=== PATIENT | female | born 1950 | race Caucasian/White ===

== ENCOUNTER → 2020-06-13 13:09 | Outpatient (BNVA) | payer MEDICARE, OTHER, SELFPAY | PROVIDERS: Family Provider Family Medicine; PCP Family Medicine; Visit Provider Family Medicine | DX: U07.1 COVID-19 (principal) | CPT/HCPCS: 87635 ==

== ENCOUNTER 2020-10-28 20:06 | Inpatient (IN) | payer MEDICARE, OTHER, SELFPAY ==
[2020-10-28] VITALS (7 sets, daily range): BP systolic 119–132; BP diastolic 82–88; PULSE 79–100; RESP 16–18; TEMP 36.4; O2SAT 92–98; BMI 29.3
--- NOTE | 2020-10-28 20:07 | CTR_ITS ---
PROCEDURE INFORMATION: Exam: CT Head Without Contrast Exam date and time: 10/28/2020 8:07 PM Age: 70 years old Clinical indication: Altered mental status/memory loss; Confusion or disorientation; Patient HX: Sudden onset AMS TECHNIQUE: Imaging protocol: Computed tomography of the head without contrast. Radiation optimization: All CT scans at this facility use at least one of these dose optimization techniques: automated exposure control; mA and/or kV adjustment per patient size (includes targeted exams where dose is matched to clinical indication); or iterative reconstruction. COMPARISON: No relevant prior studies available. RADIATION DOSE METRICS: Total DLP (mGy-cm): 666.13 FINDINGS: Brain: Mild cerebral atrophy and ischemic leukoencephalopathy. Cerebral ventricles: No ventriculomegaly. Bones/joints: Unremarkable. No acute fracture. Paranasal sinuses: Visualized sinuses are unremarkable. No fluid levels. Mastoid air cells: Visualized mastoid air cells are well aerated. Soft tissues: Unremarkable. CT/CT head wo con* [id number] IMPRESSION: No acute intracranial findings. Radiation Dose CTDIVOL = (mGy): DLP = 666.13 (mGy-cm)
--- NOTE | 2020-10-28 20:28 | ECG_ITS ---
[facility] Test Date: 2020-10-28 Pat Name: Nasrin Welsh Department: Room: Gender: Female [employer] Supervisor: : 1950 Requested By: Nile Lucero I Order Number: [id number] Reading MD: JORY STEARNS Measurements Intervals [place] Rate: 84 P: 51 OH: 146 QRS: -26 QRSD: 77 T: 220 QT: 372 QTc: 442 Interpretive Statements SINUS RHYTHM WITH FREQUENT SUPRAVENTRICULAR PREMATURE COMPLEXES BORDERLINE LEFT AXIS DEVIATION [QRS AXIS < -20] LOW QRS VOLTAGE IN PRECORDIAL LEADS [QRS DEFLECTION < 1.0 mV IN CHEST LEADS] POSSIBLE RIGHT VENTRICULAR CONDUCTION DELAY [RSR (QR) IN V1/V2] NONSPECIFIC ST & T-WAVE ABNORMALITY No previous ECG available for comparison Electronically Signed On 10-29-2020 19:31:25 INTEGRITY MANAGER by JORY STEARNS [id number] f
--- NOTE | 2020-10-28 20:29 | XRR_ITS ---
PROCEDURE INFORMATION: Exam: XR Chest, 1 View Exam date and time: 10/28/2020 9:26 PM Age: 70 years old Clinical indication: Other: altered mental status TECHNIQUE: Imaging protocol: XR of the chest Views: Frontal portable upright view of the chest. COMPARISON: No relevant prior studies available. FINDINGS: Lungs: Medial and lateral left basilar pulmonary subsegmental atelectasis. The lungs are otherwise clear bilaterally. The pulmonary vasculature is normal. Pleural spaces: Unremarkable. No pleural effusion. No pneumothorax. Heart/Mediastinum: The heart is normal in size and contour. Vasculature: Mild tortuosity of the lower descending thoracic aorta. Mild aortic arch atherosclerotic calcification without ectasia. Bones/joints: Right lateral vertebral body marginal osteophytes are noted at multiple thoracic spinal levels. XR/XR chest 1V portable [id number] IMPRESSION: Medial and lateral left basilar pulmonary subsegmental atelectasis.
[2020-10-28 20:55] LABS: Basophils # 0.1 10^3/uL (0.0-0.1); Eosinophils # 0.1 10^3/uL (0.0-0.8); Hematocrit 38.7 % (37.0-47.0); Hemoglobin 12.3 g/dL (11.5-15.3); Lymphocytes # 1.5 10^3/uL (0.8-4.8); Lymphocytes % 20.2 %; Mean Corpuscular HGB Conc 31.8 g/dL (30.0-36.0); Mean Corpuscular Hemoglobin 28.9 pg (28.0-34.0); Mean Corpuscular Volume 91.1 fL (81-99); Mean Platelet Volume 9.7 fL (7.4-10.4); Monocytes # 0.5 10^3/uL (0.2-0.9); Monocytes % 6.3 %; Neutrophils # 5.25 10^3/uL (1.8-7.7); Neutrophils % 71.2 %; Nucleated Red Blood Cells % 0 %; Platelet Count 336 10^3/cmm (130-400); Red Blood Count 4.25 10^6/uL (4.1-5.3); Red Cell Distribution Width 13.1 % (12.1-15.1); White Blood Count 7.4 10^3/uL (4.0-10.0)
[2020-10-28 21:12] LABS: Lactate (Lactic Acid level) 1.3 mmol/L (0.5-2.2)
[2020-10-28 21:13] LABS: Alanine Aminotransferase 16 U/L (0-33); Albumin Level 3.6 g/dL (3.5-5.2); Alcohol Level < 10 mg/dL (0-10); Alkaline Phosphatase 58 IU/L (35-105); Anion Gap 15.7 (5-19); Aspartate Amino Transferase 15 U/L (0-32); Blood Urea Nitrogen 14 mg/dL (8-23); C Reactive Protein 13.1 mg/L (0.0-4.9); Carbon Dioxide 24 mmol/L (22-29); Chloride 103 mmol/L (98-107); Globulin 2.7 g/dL (1.3-4.6); Glucose 118 mg/dL (65-115); Osmolality Calculated 290 mOsm/kg (285-295); Potassium 3.7 mmol/L (3.5-5.1); Sodium 139 mmol/L (136-145); Total Bilirubin 0.3 mg/dL (0.15-1.2); Total Protein 6.3 g/dL (6.6-8.7); Troponin(5th) Baseline 26 ng/L (0-10)
[2020-10-28 21:19] LABS: Amphetamines Screen Urine Negative (Negative); Barbiturates Screen Urine Negative (Negative); Benzodiazepines Screen Urine Negative (Negative); Cocaine Screen Urine Negative (Negative); Opiate Screen Urine Negative (Negative); PCP Screen Urine Negative (Negative); THC Screen Urine Negative (Negative)
[2020-10-28 21:49] LABS: Bilirubin Urine Neg (Negative); Blood Urine Neg (Negative); Glucose Urine UA Norm (Normal); Ketones Urine Negative (Negative); Leukocyte Esterase Urine 2+ (Negative); Nitrate Urine Negative (Negative); Protein Urine Neg (Negative); Specific Gravity, Urine 1.005 (1.005-1.030); Urine Appearance Clear (CLEAR); Urine Color Yellow (Yellow); Urobilinogen Urine Norm (Negative); pH Urine 7 (5-7)
[2020-10-28 21:50] LABS: Add Urine Microscopic? YES
[2020-10-28 21:51] LABS: Bacteria Urine 1+ /hpf; Mucus Urine TRACE /hpf; RBC Urine 0-4 /hpf (0-2); Squamous Epithelial Cell Urine 0-4 /hpf (0-5); Transitional Epi Cells Urine 0-4 /hpf; WBC Urine 40-55 /hpf (0-5)
[2020-10-28 21:52] LABS: Add Urine Culture? Yes
[2020-10-28] MEDS: cefTRIAXone 1,000 MG in sodium chloride 0.9% (plus) 50 ML 100 MG IV (22:16)
--- NOTE | 2020-10-28 22:28 | ECG_ITS ---
[facility] Test Date: 2020-10-28 Pat Name: Nasrin Welsh Department: Room: 278 Gender: Female Patent Litigation Associate: : 1950 Requested By: Nile Lucero I Order Number: [id number] Reading MD: JORY STEARNS Measurements Intervals [place] Rate: 76 P: 54 NE: 157 QRS: -23 QRSD: 81 T: 228 QT: 391 QTc: 442 Interpretive Statements SINUS RHYTHM BORDERLINE LEFT AXIS DEVIATION [QRS AXIS < -20] POSSIBLE RIGHT VENTRICULAR CONDUCTION DELAY [RSR (QR) IN V1/V2] NONSPECIFIC T-WAVE ABNORMALITY Compared to ECG 10/28/2020 20:37:04 No significant changes Electronically Signed On 10-29-2020 19:38:50 CORRECTIONAL SUPPLY SUPERVISOR by JORY STEARNS [email or web address] [id number] f
--- NOTE | 2020-10-28 22:48 | ED_ITS ---
HPI - Altered Mental Status General: Chief Complaint: Altered Mental Status Stated Complaint: AMS Time Seen by Provider: 10/28/20 20:07 Source: patient and EMS Mode of arrival: EMS Limitations: altered mental status History of Present Illness: HPI narrative: The albert is a 70 year old female with a history of HTN, hypothyroidism who presents to the ED with AMS. She is unable to give a coherent history. Last known well is many hours ago. She says she has been feeling unwell for about one week and today she went to bed to take a nap in the afternoon and when she woke up she was very confused. She had a Bible study class this evening and when her friends came they noticed that she was confused and not making sense. They then called for an ambulance. The ambulance crew said that the patient was in a full-blown panic attack when they got there. The patient is unable to give me a timeline of her illness and she jumped from weeks ago to hours ago and her timeline is nonlinear. She is confused and thinks she is in [place]. 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 Physical Exam Const: COMMON NORMALS: no acute distress, average body habitus, patient oriented x3, no limitations, healthy appearing, alert and well nourished HENMT: COMMON NORMALS: normocephalic, atraumatic and moist oral mucous membranes HEAD & SCALP: normocephalic and atraumatic Neck/C-Spine: COMMON NORMALS: no meningeal signs and no JVD Resp: COMMON NORMALS: normal respiratory effort, No retractions, No use of accessory muscles, clear to auscultation bilaterally and percussion normal AUSCULTATION: clear to auscultation bilaterally PERCUSSION: percussion normal Cardio: COMMON NORMALS: no JVD, regular rate, regular rhythm, S1 normal heart sound present, S2 normal heart sound present, No gallops present (Cardio), No clicks present (Cardio), No murmurs present (Cardio), No rub (Cardio) and Peripheral pulses 2+ throughout RATE: regular rate RHYTHM: regular rhythm HEART SOUNDS: S1 normal heart sound present and S2 normal heart sound present PERIPHERAL PULSES: Peripheral pulses 2+ throughout GI: COMMON NORMALS: Normal to inspection, nondistended, normoactive bowel sounds present, Soft to palpation, non-tender, No hepatosplenomegaly present, no masses and no bruits PALPATION: Yes Soft to palpation and Yes No hepatosplenomegaly present Extremity: COMMON NORMALS: normal to inspection, full ROM, capillary refill normal, no calf tenderness and no pedal edema Neuro: COMMON NORMALS: patient oriented x3 SENSORIUM/ORIENTATION: Yes alert MENINGEAL SIGNS: Yes no meningeal signs Skin: COMMON NORMALS: no rashes or lesions noted, no wounds, turgor normal, no jaundice, no petechiae and no mottling GENERAL SKIN EXAM: no rashes or lesions noted and turgor normal Course Consultations: Consultation #1: Discussed the patient with Dr. Lopez, hospitalist and he kindly accepted the patient to his service. Time: 23:44 Vital Signs: Vital signs: Vital Signs Temperature 97.6 F 10/28/20 20:16 Pulse Rate 79 10/28/20 22:15 Respiratory Rate 16 10/28/20 22:15 Blood Pressure 123/84 10/28/20 23:24 Pulse Oximetry 98 10/28/20 23:24 MDM - Altered Mental Status MDM Narrative: Medical decision making narrative: 71-year-old female patient who presents to the emergency department with altered mental status. Evaluation in the emergency department shows she has a negative head CT, UTI. S he is very confused and is unable to give a coherent history. Examination is nonrevealing. She is admitted for further evaluation and management. Medical Records: Attestation: I reviewed the patient's medical records. Lab Data: Attestation: I reviewed the patient's lab results. Labs: Lab Results 10/28/20 10/28/20 10/28/20 Range/Units 20:45 20:45 20:45 WBC 7.4 (4.0-10.0) 10^3/ uL RBC 4.25 (4.1-5.3) 10^6/u L Hgb 12.3 (11.5-15.3) g/dL Hct 38.7 (37.0-47.0) % MCV 91.1 (81-99) fL MCH 28.9 (28.0-34.0) pg MCHC 31.8 (30.0-36.0) g/dL RDW 13.1 (12.1-15.1) % Plt Count 336 (130-400) 10^3/c mm MPV 9.7 (7.4-10.4) fL Neut % (Auto) 71.2 % Lymph % (Auto) 20.2 % [place] % (Auto) 6.3 % Eos % (Auto) 1.0 % Baso % (Auto) 1.0 % Neut # (Auto) 5.25 (1.8-7.7) 10^3/u L Lymph # (Auto) 1.5 (0.8-4.8) 10^3/u L [place] # (Auto) 0.5 (0.2-0.9) 10^3/u L Eos # (Auto) 0.1 (0.0-0.8) 10^3/u L Baso # (Auto) 0.1 (0.0-0.1) 10^3/u L Nucleated RBC % (a uto) 0 % Nucleated RBCs # 0.0 /100WBC Sodium 139 (136-145) mmol/L Potassium 3.7 (3.5-5.1) mmol/L Chloride 103 (98-107) mmol/L Carbon Dioxide 24 (22-29) mmol/L Anion Gap 15.7 (5-19) BUN 14 (8-23) mg/dL Creatinine 0.7 (0.5-0.9) mg/dL GFR Calculation Not Reportable Glucose 118 H (65-115) mg/dL Calculated Osmolal ity 290 (285-295) mOsm/k g Lactate 1.3 (0.5-2.2) mmol/L Calcium 9.0 (8.5-10.5) mg/dL Total Bilirubin 0.3 (0.15-1.2) mg/dL AST 15 (0-32) U/L ALT 16 (0-33) U/L Alkaline Phosphata se 58 (35-105) IU/L Troponin T Baselin e (0-10) ng/L Troponin T 120 Min [place] (0-10) ng/L Delta Troponin T (0-10) ABS# C-Reactive Protein 13.1 H (0.0-4.9) mg/L Total Protein 6.3 L (6.6-8.7) g/dL Albumin 3.6 (3.5-5.2) g/dL Globulin 2.7 (1.3-4.6) g/dL Urine Color (Yellow) Urine Appearance (CLEAR) Urine pH (5-7) Ur Specific Gravit y (1.005-1.030) Urine Protein (Negative) Urine Glucose (UA) (Normal) Urine Ketones (Negative) Urine Blood (Negative) Urine Nitrate (Negative) Urine Bilirubin (Negative) Urine Urobilinogen (Negative) mg/dL Ur Leukocyte Marti ase (Negative) Urine RBC (0-2) /hpf Urine WBC (0-5) /hpf Ur Squamous Epith Cells (0-5) /hpf Ur Transition Epit h Cell /hpf Amorphous Sediment Urine Bacteria (NONE) /hpf Urine Mucus /hpf Urine Opiates Scre en (Negative) ng/mL Ur Barbiturates Sc reen (Negative) ng/mL Ur Phencyclidine S crn (Negative) ng/mL Ur Amphetamines Sc reen (Negative) ng/mL U Benzodiazepines Scrn (Negative) ng/mL Urine Cocaine Scre en (Negative) ng/mL U Marijuana (THC) Screen (Negative) ng/mL Ethyl Alcohol < 10 (0-10) mg/dL 10/28/20 10/28/20 10/28/20 Range/Units 20:45 20:57 20:57 WBC (4.0-10.0) 10^3/ uL RBC (4.1-5.3) 10^6/u L Hgb (11.5-15.3) g/dL Hct (37.0-47.0) % MCV (81-99) fL MCH (28.0-34.0) pg MCHC (30.0-36.0) g/dL RDW (12.1-15.1) % Plt Count (130-400) 10^3/c mm MPV (7.4-10.4) fL Neut % (Auto) % Lymph % (Auto) % [place] % (Auto) % Eos % (Auto) % Baso % (Auto) % Neut # (Auto) (1.8-7.7) 10^3/u L Lymph # (Auto) (0.8-4.8) 10^3/u L [place] # (Auto) (0.2-0.9) 10^3/u L Eos # (Auto) (0.0-0.8) 10^3/u L Baso # (Auto) (0.0-0.1) 10^3/u L Nucleated RBC % (a uto) % Nucleated RBCs # /100WBC Sodium (136-145) mmol/L Potassium (3.5-5.1) mmol/L Chloride (98-107) mmol/L Carbon Dioxide (22-29) mmol/L Anion Gap (5-19) BUN (8-23) mg/dL Creatinine (0.5-0.9) mg/dL GFR Calculation Glucose (65-115) mg/dL Calculated Osmolal ity (285-295) mOsm/k g Lactate (0.5-2.2) mmol/L Calcium (8.5-10.5) mg/dL Total Bilirubin (0.15-1.2) mg/dL AST (0-32) U/L ALT (0-33) U/L Alkaline Phosphata se (35-105) IU/L Troponin T Baselin e 26 H (0-10) ng/L Troponin T 120 Min [place] (0-10) ng/L Delta Troponin T (0-10) ABS# C-Reactive Protein (0.0-4.9) mg/L Total Protein (6.6-8.7) g/dL Albumin (3.5-5.2) g/dL Globulin (1.3-4.6) g/dL Urine Color Yellow (Yellow) Urine Appearance Clear (CLEAR) Urine pH 7 (5-7) Ur Specific Gravit y 1.005 (1.005-1.030) Urine Protein Neg (Negative) Urine Glucose (UA) Norm (Normal) Urine Ketones Negative (Negative) Urine Blood Neg (Negative) Urine Nitrate Negative (Negative) Urine Bilirubin Neg (Negative) Urine Urobilinogen Norm (Negative) mg/dL Ur Leukocyte Marti ase 2+ H (Negative) Urine RBC 0-4 H (0-2) /hpf Urine WBC 40-55 H (0-5) /hpf Ur Squamous Epith Cells 0-4 H (0-5) /hpf Ur Transition Epit h Cell 0-4 /hpf Amorphous Sediment Not Reportable Urine Bacteria 1+ H (NONE) /hpf Urine Mucus Trace /hpf Urine Opiates Scre en Negative (Negative) ng/mL Ur Barbiturates Sc reen Negative (Negative) ng/mL Ur Phencyclidine S crn Negative (Negative) ng/mL Ur Amphetamines Sc reen Negative (Negative) ng/mL U Benzodiazepines Scrn Negative (Negative) ng/mL Urine Cocaine Scre en Negative (Negative) ng/mL U Marijuana (THC) Screen Negative (Negative) ng/mL Ethyl Alcohol (0-10) mg/dL 10/28/20 Range/Units 22:52 WBC (4.0-10.0) 10^3/ uL RBC (4.1-5.3) 10^6/u L Hgb (11.5-15.3) g/dL Hct (37.0-47.0) % MCV (81-99) fL MCH (28.0-34.0) pg MCHC (30.0-36.0) g/dL RDW (12.1-15.1) % Plt Count (130-400) 10^3/c mm MPV (7.4-10.4) fL Neut % (Auto) % Lymph % (Auto) % [place] % (Auto) % Eos % (Auto) % Baso % (Auto) % Neut # (Auto) (1.8-7.7) 10^3/u L Lymph # (Auto) (0.8-4.8) 10^3/u L [place] # (Auto) (0.2-0.9) 10^3/u L Eos # (Auto) (0.0-0.8) 10^3/u L Baso # (Auto) (0.0-0.1) 10^3/u L Nucleated RBC % (a uto) % Nucleated RBCs # /100WBC Sodium (136-145) mmol/L Potassium (3.5-5.1) mmol/L Chloride (98-107) mmol/L Carbon Dioxide (22-29) mmol/L Anion Gap (5-19) BUN (8-23) mg/dL Creatinine (0.5-0.9) mg/dL GFR Calculation Glucose (65-115) mg/dL Calculated Osmolal ity (285-295) mOsm/k g Lactate (0.5-2.2) mmol/L Calcium (8.5-10.5) mg/dL Total Bilirubin (0.15-1.2) mg/dL AST (0-32) U/L ALT (0-33) U/L Alkaline Phosphata se (35-105) IU/L Troponin T Baselin e (0-10) ng/L Troponin T 120 Min [place] 25.12 H (0-10) ng/L Delta Troponin T -0.88 L (0-10) ABS# C-Reactive Protein (0.0-4.9) mg/L Total Protein (6.6-8.7) g/dL Albumin (3.5-5.2) g/dL Globulin (1.3-4.6) g/dL Urine Color (Yellow) Urine Appearance (CLEAR) Urine pH (5-7) Ur Specific Gravit y (1.005-1.030) Urine Protein (Negative) Urine Glucose (UA) (Normal) Urine Ketones (Negative) Urine Blood (Negative) Urine Nitrate (Negative) Urine Bilirubin (Negative) Urine Urobilinogen (Negative) mg/dL Ur Leukocyte Marti ase (Negative) Urine RBC (0-2) /hpf Urine WBC (0-5) /hpf Ur Squamous Epith Cells (0-5) /hpf Ur Transition Epit h Cell /hpf Amorphous Sediment Urine Bacteria (NONE) /hpf Urine Mucus /hpf Urine Opiates Scre en (Negative) ng/mL Ur Barbiturates Sc reen (Negative) ng/mL Ur Phencyclidine S crn (Negative) ng/mL Ur Amphetamines Sc reen (Negative) ng/mL U Benzodiazepines Scrn (Negative) ng/mL Urine Cocaine Scre en (Negative) ng/mL U Marijuana (THC) Screen (Negative) ng/mL Ethyl Alcohol (0-10) mg/dL Imaging Data^: CT Head: Attestation: I personally reviewed and interpreted this imaging study as follows: Radiologist's impression: [address] [address] [address] Scan Report Signed Patient: Nasrin Welsh #: [id number] : 8Acct#:[id number] Age/Sex: 70 / FADM Date: 10/28/20 Loc: ERRoom/Bed: Attending Dr: Ordering Provider/Ordering MD: Nile Lucero [place], [facility] [place] of Service: 10/28/20 Procedure(s): CT head wo con* [id number] Accession Number(s): [id number] Report Number: [id number] PROCEDURE INFORMATION: Exam: CT Head Without Contrast Exam date and time: 10/28/2020 8:07 PM Age: 70 years old Clinical indication: Altered mental status/memory loss; Confusion or disorientation; Patient HX: Sudden onset AMS TECHNIQUE: Imaging protocol: Computed tomography of the head without contrast. Radiation optimization: All CT scans at this facility use at least one of these dose optimization techniques: automated exposure control; mA and/or kV adjustment per patient size (includes targeted exams where dose is matched to clinical indication); or iterative reconstruction. COMPARISON: No relevant prior studies available. RADIATION DOSE METRICS: Total DLP (mGy-cm): 666.13 FINDINGS: Brain: Mild cerebral atrophy and ischemic leukoencephalopathy. Cerebral ventricles: No ventriculomegaly. Bones/joints: Unremarkable. No acute fracture. Paranasal sinuses: Visualized sinuses are unremarkable. No fluid levels. Mastoid air cells: Visualized mastoid air cells are well aerated. Soft tissues: Unremarkable. CT/CT head wo con* [id number] IMPRESSION: No acute intracranial findings. Radiation Dose CTDIVOL = (mGy): DLP = 666.13 (mGy-cm) Dictated By:Jd Gillette MD Signed By:Jd Gillette MDSigned Date/Time:10/28/202018 DD/ 17 EKG Data^: EKG 1: Attestation: I personally reviewed and interpreted this EKG as follows: EKG interpretation date: 10/28/20 EKG interpretation time: 20:37 Prior EKG tracings: not available for review Interpretation: Sinus rhythm with frequent supraventricular premature complexes. Heart rate 84 bpm. Left axis deviation. No ST changes. EKG 2: Attestation: I personally reviewed and interpreted this EKG as follows: EKG interpretation date: 10/28/20 EKG interpretation time: 23:13 Prior EKG tracings: available for review Interpretation: Sinus rhythm. Heart rate 76 bpm. Left axis deviation. No ST changes. Discharge Plan Discharge Patient Disposition: Admitted As Inpatient Clinical Impression: Delirium due to general medical condition, Altered mental status, UTI (urinary tract infection) Condition: Stable Prescriptions: No Action hydrochlorothiazide 25 mg tablet 25 mg PO QAM RF: 0 lisinopril 30 mg tablet 30 mg PO ONCE RF: 0 levothyroxine 50 mcg capsule 50 mcg PO ONCE RF: 0 Referrals: Jerry Flynn, [Primary Care Provider] - Coding Level of Care Code ED Industrial Paramedic for Chg Fwd Exam Comprehensive
--- NOTE | 2020-10-28 23:17 | CTR_ITS ---
PROCEDURE INFORMATION: Exam: CT Angiography Head With Contrast Exam date and time: 10/28/2020 11:58 PM Age: 70 years old Clinical indication: Cognitive deficit and speech disturbance; Altered mental status; Patient HX: AMS - aphasia TECHNIQUE: Imaging protocol: Computed tomography angiography of the head with intravenous contrast. 3D rendering (Not supervised by radiologist): MIP and/or 3D reconstructed images were created by the technologist. Radiation optimization: All CT scans at this facility use at least one of these dose optimization techniques: automated exposure control; mA and/or kV adjustment per patient size (includes targeted exams where dose is matched to clinical indication); or iterative reconstruction. Contrast material: OMNI 350; Contrast volume: 95 ml; Contrast route: INTRAVENOUS (IV); COMPARISON: CT head wo con* [id number] 10/28/2020 8:12 PM RADIATION DOSE METRICS: Total DLP (mGy-cm): 1874.73 FINDINGS: ANTERIOR CIRCULATION: Right internal carotid artery: Unremarkable. Intracranial segment is patent with no significant stenosis. No aneurysm. Right middle cerebral artery: Unremarkable. No occlusion or significant stenosis. No aneurysm. Right anterior cerebral artery: Unremarkable. No occlusion or significant stenosis. No aneurysm. Left internal carotid artery: Unremarkable. Intracranial segment is patent with no significant stenosis. No aneurysm. Left middle cerebral artery: Unremarkable. No occlusion or significant stenosis. No aneurysm. Left anterior cerebral artery: Unremarkable. No occlusion or significant stenosis. No aneurysm. POSTERIOR CIRCULATION: Right vertebral artery: Unremarkable. No occlusion or significant stenosis. No aneurysm. Left vertebral artery: Unremarkable. No occlusion or significant stenosis. No aneurysm. Basilar artery: Unremarkable. No occlusion or significant stenosis. No aneurysm. Right posterior cerebral artery: Unremarkable. No occlusion or significant stenosis. No aneurysm. Left posterior cerebral artery: Unremarkable. No occlusion or significant stenosis. No aneurysm. Brain: No definite mass, mass effect, or midline shift. Cerebral ventricles: No ventriculomegaly. Bones/joints: Unremarkable. No acute fracture. Soft tissues: Unremarkable. IMPRESSION: No large vessel stenosis or occlusion. PROCEDURE INFORMATION: Exam: CT Angiography Neck With Contrast Exam date and time: 10/28/2020 11:58 PM Age: 70 years old Clinical indication: Cognitive deficit and speech disturbance; Altered mental status; Patient HX: AMS - aphasia TECHNIQUE: Imaging protocol: Computed tomography angiography of the neck with intravenous contrast. 3D rendering (Not supervised by radiologist): MIP and/or 3D reconstructed images were created by the technologist. Radiation optimization: All CT scans at this facility use at least one of these dose optimization techniques: automated exposure control; mA and/or kV adjustment per patient size (includes targeted exams where dose is matched to clinical indication); or iterative reconstruction. Contrast material: OMNI 350; Contrast volume: 95 ml; Contrast route: INTRAVENOUS (IV); COMPARISON: CT head wo con* [id number] 10/28/2020 8:12 PM RADIATION DOSE METRICS: Total DLP (mGy-cm): 1874.73 FINDINGS: Right common carotid artery: No stenosis. No dissection or occlusion. Right internal carotid artery: No stenosis of the extracranial segment. No dissection or occlusion. Right external carotid artery: No occlusion or stenosis of the origin. Right vertebral artery: No stenosis. No dissection or occlusion. Left common carotid artery: No stenosis. No dissection or occlusion. Left internal carotid artery: No stenosis of the extracranial segment. No dissection or occlusion. Left external carotid artery: No occlusion or stenosis of the origin. Left vertebral artery: No stenosis. No dissection or occlusion. Bones/joints: No acute fracture. Soft tissues: Normal. No significant soft tissue swelling. CT/CT angio headneck* [id number] IMPRESSION: No stenosis or occlusion. REFERENCES: NASCET CRITERIA. The degree of internal carotid artery stenosis is based on NASCET criteria. Normal is no stenosis. Mild is less than 50% stenosis. Moderate is 50-69% stenosis. Severe is 70% to 99% stenosis. Total occlusion is no detectable patent lumen. Radiation Dose CTDIVOL = (mGy): DLP = 1874.73~1874.73 (mGy-cm)
[2020-10-28 23:18] LABS: Troponin 5 2HR 25.12 ng/L (0-10)
[2020-10-28 23:21] LABS: Troponin 5 2HR Delta -0.88 ABS# (0-10)
[2020-10-29] VITALS (8 sets, daily range): BP systolic 98–155; BP diastolic 65–95; PULSE 75–113; RESP 16–21; TEMP 36.4–37.1; O2SAT 94–99
[2020-10-29] MEDS: iohexol 350 mg/mL 100 mL Btl IV (00:23)
--- NOTE | 2020-10-29 01:26 | PM.HP ---
Providers/Chief Complaint Admitting Physician: Yaya Lopez Primary Care Provider: Jerry Flynn DO Chief Complaint: AMS History of Present Illness Nasrin Welsh is a 70 year old female with a history of hypertension was brought to the emergency department because patient was found confused when her friends visited for Bible studies. Patient could not provide any history. She is quite confused. Work-up in the ED is notable for UA suggesting the presence of UTI. Head CT is negative for acute CVA. CTA head and neck unremarkable. Patient suspected to have metabolic encephalopathy secondary to UTI. She is admitted for further management. Review of Systems Narrative: Unable to obtain review of systems due to altered mental status. Medications/Allergies Home Medications Medication Instructions Recorded Confirmed Last Taken Type hydrochlorothiazide 25 mg tablet 25 mg PO QAM 09/22/19 11/17/19 Unknown History levothyroxine 50 mcg capsule 50 mcg PO ONCE 09/22/19 11/17/19 Unknown History lisinopril 30 mg tablet 30 mg PO ONCE 09/22/19 11/17/19 Unknown History Allergies Allergy/AdvReac Type Severity Reaction Status Date / Time Sulfa (Sulfonamide Allergy Unknown ALGY-Bliste Verified 11/17/19 15:06 Antibiotics) r PFSH Acute PFSH: Medical History (Updated 10/29/20 @ 01:27 by Yaya Lopez MD) Hypertension Hypothyroidism Plantar porokeratosis, acquired Social History (Reviewed 10/28/20 @ 22:53 by Nile Lucero MD, [facility] [place]) Smoking and tobacco status: never smoked Alcohol intake: current Alcohol intake frequency: few times a month Household members: none Current occupational status: other 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 Vitals/I&O/Wt Last Vital Signs Temp 98.2 F 10/29/20 01:03 Pulse 84 10/29/20 01:03 Resp 21 H 10/29/20 01:03 BP 155/95 10/29/20 01:03 Pulse Ox 96 10/29/20 01:03 10/28/20 10/28/20 10/29/20 14:59 22:59 06:59 Intake Total 50 / 50 Balance 50 / 50 Weight last 48 hrs Weight 87.543 kg Physical Exam Const: COMMON NORMALS: no acute distress and well nourished ORIENTATION/CONSCIOUSNESS: Yes confused HENMT: COMMON NORMALS: normocephalic, atraumatic, moist oral mucous membranes and oropharynx normal Eye: COMMON NORMALS: Equal, round and reactive pupils present, EOMs intact bilaterally, conjunctivae normal and no scleral icterus Neck/C-Spine: COMMON NORMALS: no lymphadenopathy, supple, no meningeal signs, no JVD, Thyroid normal and No carotid bruits Lymph: LYMPHATIC: no lymphadenopathy noted Chest: COMMONS NORMALS: normal inspection of the chest and normal palpation of entire chest wall Resp: COMMON NORMALS: normal respiratory effort, No use of accessory muscles and clear to auscultation bilaterally Cardio: COMMON NORMALS: regular rate, regular rhythm, S1 normal heart sound present, S2 normal heart sound present and No murmurs present (Cardio) GI: COMMON NORMALS: Normal to inspection, nondistended, normoactive bowel sounds present, Soft to palpation, non-tender and No hepatosplenomegaly present : COMMON NORMALS: Yes no CVA tenderness Back/Pelvis: COMMON NORMALS: no thoracic nor lumbar tenderness and thoraco-lumbar ROM normal Extremity: COMMON NORMALS: normal to inspection, capillary refill normal, no clubbing, cyanosis or edema and no pedal edema Neuro: COMMON NORMALS: CN's II-XII intact bilaterally and no focal motor deficits Psych: THOUGHT PROCESS: confused Skin: COMMON NORMALS: no rashes or lesions noted, turgor normal and no jaundice Data : 10/28/20 20:45 10/28/20 20:45 A&P Assessment and plan (1) Altered mental status: Status: Acute Qualifiers: Altered mental status type: delirium Qualified Code(s): R41.0 - Disorientation, unspecified (2) Delirium due to general medical condition: Status: Acute (3) UTI (urinary tract infection): Status: Acute Qualifiers: Hematuria presence: without hematuria Urinary tract infection type: acute cystitis Qualified Code(s): N30.00 - Acute cystitis without hematuria (4) Hypertension: Status: Acute (5) Hypothyroidism: Status: Acute Additional A&P Information Admit patient to the medical floor. Hydrate with IV normal saline Start IV Rocephin. Follow urine culture and blood cultures. Neurochecks. Monitor electrolytes and replete as needed. Attestations Medical Necessity Statement*: Patient needs to be hospitalized for further treatment of acute UTI with metabolic encephalopathy. She is expected to spend more than 2 midnights. Time Spent in Patient Care: 54 minutes. Coding Level of Care Code Acute [employer] Executive Director for Chg Fwd Exam Comprehensive Diagnoses Altered mental status R41.0 Altered mental status type: delirium Delirium due to general medical condition F05 UTI (urinary tract infection) N30.00 Hematuria presence: without hematuria Urinary tract infection type: acute cystitis Hypertension I10 Hypothyroidism E03.9
--- NOTE | 2020-10-29 02:28 | ECG_ITS ---
[facility] Test Date: 2020-10-29 Pat Name: Nasrin Welsh Department: Room: 278 Gender: Female Advertising Traffic Manager: : 1950 Requested By: Nile Lucero I Order Number: [id number] Reading MD: JORY STEARNS Measurements Intervals [place] Rate: 103 P: AR: QRS: -21 QRSD: 83 T: 232 QT: 343 QTc: 450 Interpretive Statements ATRIAL FIBRILLATION WITH RAPID VENTRICULAR RESPONSE BORDERLINE LEFT AXIS DEVIATION [QRS AXIS < -20] POSSIBLE RIGHT VENTRICULAR CONDUCTION DELAY [RSR (QR) IN V1/V2] NONSPECIFIC ST & T-WAVE ABNORMALITY Compared to ECG 10/28/2020 23:13:05 THERE IS NO CHANGE Electronically Signed On 10-29-2020 19:37:46 WORKFORCE CONSULTANT by JORY STEARNS [id number]
[2020-10-29] MEDS: enoxaparin 40 mg/0.4 mL Syringe SUBCUT (02:34)
[2020-10-29] MEDS: sodium chloride 0.9% 1,000 ML 75 ML IV ×2 (02:34→17:17)
[2020-10-29] MEDS: lisinopril 10 mg Tablet 30 MG PO (02:34)
[2020-10-29] MEDS: levothyroxine 50 mcg Tablet PO (02:34)
--- NOTE | 2020-10-29 03:57 | ECG_ITS ---
[facility] Test Date: 2020-10-29 Pat Name: Nasrin Welsh Department: Room: 278 Gender: Female Bologna Lacer: : 1950 Requested By: Yaya Lopez Order Number: [id number] Reading MD: JORY STEARNS Measurements Intervals [place] Rate: 105 P: NM: QRS: -23 QRSD: 89 T: 231 QT: 364 QTc: 482 Interpretive Statements ATRIAL FIBRILLATION WITH RAPID VENTRICULAR RESPONSE BORDERLINE LEFT AXIS DEVIATION [QRS AXIS < -20] NONSPECIFIC ST & T-WAVE ABNORMALITY INTERPRETATION BASED ON A DEFAULT AGE OF 40 YEARS Compared to ECG 10/28/2020 23:13:05 Sinus rhythm no longer present T-wave abnormality still present Electronically Signed On 10-29-2020 19:30:46 PLAY BACK OPERATOR by JORY STEARNS [email or web address] Therapeuticspatient's choice medical center of smith countyEncapsonparma community general hospital.[employer]store/NU/[id number] f
[2020-10-29] MEDS: hydroCHLOROthiazide 25 mg Tablet PO (05:31)
--- NOTE | 2020-10-29 07:07 | USCV_ITS ---
Nasrin Welsh Age: 70 Gender: F : 1950 Exam Date: 10/29/2020 08:25 Ordering Phys: Yaya Lopez MD Technologist: Doris Rosario Exam Location: [facility] [place] Indication: RAPID AFIB , AMS BP: / HR: 143 Rhythm: Atrial fibrillation Technical Quality: Suboptimal MEASUREMENTS (Male / Female) Normal Values 2D ECHO LV Diastolic Diameter PLAX 3.7 cm 4.2 - 5.9 / 3.9 - 5.3 cm LV Systolic Diameter PLAX 2.8 cm LV Chamber Size 4.3 cm IVS Diastolic Thickness 1.3 cm 0.6 - 1.0 / 0.6 - 0.9 cm IVS Systolic Thickness 1.5 cm LVPW Diastolic Thickness 1.3 cm 0.6 - 1.0 / 0.6 - 0.9 cm LVPW Systolic Thickness 1.7 cm RV Chamber Size 3.0 cm LVOT Diameter 2.0 cm LV Ejection Fraction 2D Teich 50.8 % LA Diameter 4.2 cm LA Width 3.0 cm LA Height 5.8 cm RA Width 3.3 cm RA Height 4.8 cm Aorta at Sinotubular Diameter 2.3 cm M-MODE LV Diastolic Diameter MM 4.2 cm 4.2 - 5.9 / 3.9 - 5.3 cm LV Systolic Diameter MM 2.8 cm LV Ejection Fraction MM Teich 63.4 % IVS Diastolic Thickness MM 1.4 cm 0.6 - 1.0 / 0.6 - 0.9 cm IVS Systolic Thickness MM 1.2 cm LVPW Diastolic Thickness MM 1.1 cm 0.6 - 1.0 / 0.6 - 0.9 cm LVPW Systolic Thickness MM 1.4 cm RV Diastolic Diameter MM 2.1 cm Aortic Annulus Diameter 2.4 cm LA Ao Ratio MM 1.8 MV E Point Septal Separation 0.3 cm DOPPLER AV Peak Velocity 146.0 cm/s LVOT Peak Velocity 113.0 cm/s AV Area Cont Eq vti 2.7 cm squared AV Area Cont Eq pk 2.5 cm squared MV E' Velocity 10.0 cm/s TR Peak Velocity 330.0 cm/s TR Peak Gradient 43.6 mmHg TR Mean Velocity 231.3 cm/s TR Mean Gradient 22.5 mmHg TR Velocity Time Integral 80.9 cm TV Peak E Velocity 75.0 cm/s PV Peak Velocity 70.0 cm/s FINDINGS Left Ventricle Possibly normal LV size and ejection fraction. Patient was found to be atrial fibrillation with rapid ventricular rate during the study. Segmental wall motion analysis and ejection fraction estimation could be misleading. Right Ventricle Echodensity was noted in the right ventricular free wall, may suggest myxoma Right Atrium Moderately increased right atrial size. Left Atrium Moderately increased left atrial size. Mitral Valve Thickened mitral valve. Mild mitral valve regurgitation. Aortic Valve Thickened aortic valve. Tricuspid Valve Moderate tricuspid valve regurgitation. Estimated pulmonary artery peak systolic pressure of 49 mmHg Pulmonic Valve Pulmonic valve sclerosis. Pericardium Normal pericardium without effusion. Aorta Normal ascending aorta dimension. CONCLUSIONS Possibly normal left ventricular size and ejection fraction. Patient was found to be in atrial fibrillation with rapid ventricular rate during the study. Segmental wall motion analysis and ejection fraction estimation could be misleading. Moderate biatrial enlargement. Moderate tricuspid valve regurgitation. Estimated pulmonary artery peak systolic pressure of 49 mmHg. Thickened mitral valve. Mild mitral valve regurgitation. There is no pericardial effusion. 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 Consider repeating the study(limited 2D echo) when the heart rate is under control, to better evaluate the RV lesion No previous study is available for comparison. Dr Deepti Arias MD [facility] (Electronically Signed) Final Date: 29 October 2020 19:31 S
[2020-10-29] MEDS: metoprolol tartrate 1 mg/1 mL SDV 5 mL 5 MG IV (09:27)
--- NOTE | 2020-10-29 09:30 | US_ITS ---
WS: [id number] ULTRASOUND RENAL TECHNIQUE: Ultrasound examination of both kidneys. CLINICAL INFORMATION: encephalotpahty, uti COMPARISON: None. FINDINGS: RIGHT: Right kidney is normal in size and appearance. Echogenicity: Normal. Cortical thickness: 1.1 cm; Normal. Hydronephrosis: None. Perinephric fluid: None. Right kidney measures: 10.9 cm x 4.8 cm x 4.1 cm. LEFT: Left kidney is normal in size and appearance. Echogenicity: Normal. Cortical thickness: 1.5 cm; Normal. Hydronephrosis: None. Perinephric fluid: None. Left kidney measures: 10.2 cm x 5.2 cm x 3.5 cm. Normal visualized aorta. Urine distended bladder. Bladder volume 230 cc US/US renal BI* [id number] IMPRESSION: Normal renal ultrasound
--- NOTE | 2020-10-29 09:31 | ECG_ITS ---
[facility] Test Date: 2020-10-29 Pat Name: Nasrin Welsh Department: Room: 278 Gender: Female Telesales Agent: : 1950 Requested By: Vinicius Gorman Order Number: [id number] Reading MD: JORY STEARNS Measurements Intervals [place] Rate: 129 P: [place]: QRS: -8 QRSD: 90 T: 180 QT: 283 QTc: 415 Interpretive Statements ATRIAL FIBRILLATION WITH RAPID VENTRICULAR RESPONSE LOW QRS VOLTAGE IN PRECORDIAL LEADS [QRS DEFLECTION < 1.0 mV IN CHEST LEADS] NONSPECIFIC ST & T-WAVE ABNORMALITY Compared to ECG 10/29/2020 03:52:20 Low QRS voltage now present T-wave abnormality still present Electronically Signed On 10-29-2020 19:30:00 ANTIQUE CLOCKS REPAIRER by JORY STEARNS [email or web address] [email or web address] general hospitalBuyHappymercy health.Clear [employer]vantage Col[employer]/store/NU/[id number] f
[2020-10-29 11:03] LABS: Troponin(5th) Baseline 25 ng/L (0-10)
[2020-10-29 11:11] LABS: NT Pro B Type Natriuretic Pept 2407 pg/mL (0-125)
--- NOTE | 2020-10-29 11:31 | ECG_ITS ---
[facility] Test Date: 2020-10-29 Pat Name: Nasrin Welsh Department: Room: 278 Gender: Female Residential Door Unit Installer: : 1950 Requested By: Vinicius Gorman Order Number: [id number] Reading MD: JORY STEARNS Measurements Intervals [place] Rate: 120 P: [place]: QRS: -15 QRSD: 78 T: 219 QT: 301 QTc: 426 Interpretive Statements ATRIAL FIBRILLATION WITH RAPID VENTRICULAR RESPONSE LOW QRS VOLTAGE IN PRECORDIAL LEADS [QRS DEFLECTION < 1.0 mV IN CHEST LEADS] MINIMAL ST DEPRESSION [0.025+ mV ST DEPRESSION] ABNORMAL QRS-T ANGLE [QRS-T AXIS DIFFERENCE > 60] Compared to ECG 10/29/2020 08:55:55 ST (T wave) deviation now present T-wave abnormality no longer present Electronically Signed On 10-29-2020 19:32:00 ELASTIC ASSEMBLER by JORY STEARNS [email or web address] [email or web address] Biotechnologysanger [facility].[employer]/store/[id number]
[2020-10-29] MEDS: apixaban 5 mg Tablet PO ×2 (11:38→22:13)
--- NOTE | 2020-10-29 11:49 | MR_ITS ---
WS: [id number] MRI HEAD WITHOUT CONTRAST TECHNIQUE: Sagittal T1, T2 axial, T2 axial FLAIR, axial and coronal T1 images, axial susceptibility w eighted imaging, axial diffusion weighted images, and coronal T2 images were obtained. CLINICAL INFORMATION: STROKE? COMPARISON: None. FINDINGS: Patchy restricted diffusion involving the left frontal lobe laterally extending to the operculum. Res tricted diffusion extending into the subinsular cortex. Findings consistent with acute ischemia. Jasvir tional punctate focus of restricted diffusion in the right cerebellum consistent with tiny acute infa rct. Additional tiny focus of restricted diffusion in the left parietal lobe consistent with tiny foc us of acute ischemia. No hemosiderin on susceptibly weighted imaging. Normal vascular flow voids at the skull base. No extra axial fluid collections. No evidence of mass o r mass effect. Paranasal sinuses and mastoid air cells well aerated. Normal optic chiasm and pituitary infundibulum. 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 MR/MR head wo con* [id number] IMPRESSION: 1. Acute ischemia involving the left frontal lobe laterally extending into the subinsular cortex described above. Mild associated edema. No significant mass effect or midline shift. 2. Tiny punctate foci of acute ischemia involving the left parietal lobe and r ight cerebellum. Consider embolic etiologies. 3. Moderate small vessel changes. Moderate parenchymal volume loss. Notified Vinicius Gorman MD at 10/29/2020 4:10 PM.
--- NOTE | 2020-10-29 14:35 | PM.PN ---
Subjective Subjective: Interval history: This morning patient was examined, she is alert to person, place, time, follows all commands, no focal neurologic deficits that I can appreciate, however at times I do have to repeat my questions as I will not get a straight answer, she tells me that roughly 2 weeks ago she went to [facility] for a christian seminar, just did not feel well most of the time that she was there, and when she returned she had a few days rest, her ill feeling did get better to some degree, she thought she might have a UTI, she is called her primary care physician's office, she finished a 5-day course of Cipro, however yesterday evening at 730, she was in a christian prayer group, when she was trying to set up the TV, and she suddenly just became confused, did not recognize any of the christian members, was not acting appropriately, no falls, no head injury, no witnessed seizure-like episodes, no urinary bowel incontinence, patient is not sure if she had any focal neurologic deficits or facial droop, any slurring of her speech, currently she is tells me that she is doing better Vitals/I&O/Wt Last Vital Signs Temp 97.5 F L 10/29/20 11:27 Pulse 92 10/29/20 11:27 Resp 18 10/29/20 11:27 BP 112/66 10/29/20 11:27 Pulse Ox 96 10/29/20 11:27 10/28/20 10/29/20 10/29/20 22:59 06:59 14:59 Intake Total 50 / 50 Balance 50 / 50 Weight last 48 hrs Weight 90.038 kg Weight 87.543 kg Physical Exam Const: COMMON NORMALS: no acute distress and patient oriented x3 HENMT: COMMON NORMALS: normocephalic HEAD & SCALP: normocephalic Neck/C-Spine: COMMON NORMALS: no JVD Resp: COMMON NORMALS: normal respiratory effort, No retractions, No use of accessory muscles and clear to auscultation bilaterally AUSCULTATION: clear to auscultation bilaterally Cardio: COMMON NORMALS: no JVD, regular rate, regular rhythm, S1 normal heart sound present and S2 normal heart sound present RATE: regular rate RHYTHM: regular rhythm HEART SOUNDS: S1 normal heart sound present and S2 normal heart sound present GI: COMMON NORMALS: Normal to inspection, nondistended, normoactive bowel sounds present, Soft to palpation, non-tender, No hepatosplenomegaly present, no masses and no bruits PALPATION: Yes Soft to palpation and Yes No hepatosplenomegaly present Extremity: COMMON NORMALS: capillary refill normal, no clubbing, cyanosis or edema, no calf tenderness and no pedal edema Neuro: COMMON NORMALS: patient oriented x3 Psych: COMMON NORMALS: mental status grossly normal Data : 10/28/20 20:45 10/28/20 20:45 Micro: Microbiology 10/29/20 01:30 Blood Culture - Preliminary Blood SPECIMEN COLLECTED 10/29/20 01:39 Blood Culture - Preliminary Blood SPECIMEN COLLECTED A&P Assessment and plan (1) Delirium due to general medical condition: -Has finished ciprofloxacin course for urinary tract infection, gets 2 UTIs a year, never hospitalized, no history of resistant organisms, UA positive for leukocyte esterase, WBCs, currently on Rocephin, follow urine cultures -She does have new onset atrial fibrillation, detected during this hospitalization, the question is has she had an embolic event? -CT of the head was negative for acute stroke -CTA of the head and neck was unremarkable for any significant stenosis -MRI of the brain ordered -EEG ordered -Cardiac echocardiogram ordered -Receiving IV fluids for dehydration -Neuro checks, monitor mentation Status: Acute (2) New onset atrial fibrillation: -Heart rates improved with IV metoprolol 5 mg once -Continue metoprolol 25 twice daily -Continue Eliquis 5 mg p.o. every 12 hours -Monitor for bloody black stools, monitor hemoglobin -Cardiac echocardiogram ordered -Continue telemetry monitoring -Serial EKGs, serial troponins Status: Acute (3) Hypertension: Status: Acute (4) Hypothyroidism: Status: Acute (5) UTI (urinary tract infection): Status: Acute Qualifiers: Hematuria presence: without hematuria Urinary tract infection type: acute cystitis Qualified Code(s): N30.00 - Acute cystitis without hematuria Additional A&P Information Given her recent travel, she would like to be tested for COVID-19 Full code Eliquis for DVT prophylaxis Attestations Medical Necessity Statement*: Patient requires hospitalization and due to delirium, new onset atrial fibrillation, inpatient, greater than 2 midnights Coding Level of Care Code Acute Inorganic Chemist for Ashley Argueta Diagnoses Delirium due to general medical condition F05 New onset atrial fibrillation I48.91 Hypertension I10 Hypothyroidism E03.9 UTI (urinary tract infection) N30.00 Hematuria presence: without hematuria Urinary tract infection type: acute cystitis
--- NOTE | 2020-10-29 15:31 | ECG_ITS ---
[facility] Test Date: 2020-10-29 Pat Name: Nasrin Welsh Department: Room: 278 Gender: Female Ventilated Rib Fitter: : 1950 Requested By: Vinicius Gorman Order Number: [id number] Reading MD: JORY STEARNS Measurements Intervals [place] Rate: 103 P: [place]: QRS: -23 QRSD: 79 T: 221 QT: 305 QTc: 400 Interpretive Statements ATRIAL FIBRILLATION WITH RAPID VENTRICULAR RESPONSE BORDERLINE LEFT AXIS DEVIATION [QRS AXIS < -20] NONSPECIFIC ST & T-WAVE ABNORMALITY Compared to ECG 10/29/2020 13:59:07 T-wave abnormality now present ST (T wave) deviation no longer present Electronically Signed On 10-29-2020 19:31:34 4TH GRADE MATH TEACHER by JORY STEARNS [id number]
[2020-10-29 17:32] LABS: Troponin 5 6HR 25.46 ng/L (0-10); Troponin 5 6HR Delta 0.46 ng/L (0-12)
[2020-10-29 17:43] LABS: SARS Covid-2 Antigen Negative (Negative)
[2020-10-29] MEDS: metoprolol tartrate 25 mg Tablet PO (22:13)
[2020-10-29] MEDS: cefTRIAXone 1,000 MG in sodium chloride 0.9% (plus) 50 ML 100 MG IV (22:14)
[2020-10-30] VITALS (9 sets, daily range): BP systolic 114–144; BP diastolic 73–85; PULSE 78–94; RESP 18; TEMP 36.5–37.3; O2SAT 94–97
[2020-10-30] MEDS: levothyroxine 50 mcg Tablet PO (05:36)
[2020-10-30 05:37] LABS: Basophils # 0.1 10^3/uL (0.0-0.1); Basophils % 0.8 %; Eosinophils # 0.1 10^3/uL (0.0-0.8); Eosinophils % 1.4 %; Hematocrit 37.6 % (37.0-47.0); Hemoglobin 12.2 g/dL (11.5-15.3); Lymphocytes # 2.2 10^3/uL (0.8-4.8); Lymphocytes % 30.5 %; Mean Corpuscular HGB Conc 32.4 g/dL (30.0-36.0); Mean Corpuscular Hemoglobin 28.9 pg (28.0-34.0); Mean Corpuscular Volume 89.1 fL (81-99); Mean Platelet Volume 9.7 fL (7.4-10.4); Monocytes # 0.4 10^3/uL (0.2-0.9); Monocytes % 6.2 %; Neutrophils # 4.31 10^3/uL (1.8-7.7); Neutrophils % 60.8 %; Nucleated Red Blood Cells % 0 %; Platelet Count 344 10^3/cmm (130-400); Red Blood Count 4.22 10^6/uL (4.1-5.3); Red Cell Distribution Width 13.4 % (12.1-15.1); White Blood Count 7.1 10^3/uL (4.0-10.0)
[2020-10-30 05:48] LABS: INR 1.23 (0.8-1.2)
[2020-10-30 06:10] LABS: Procalcitonin 0.02 ng/mL (0-0.5); Thyroid Stimulating Hormone 2.26 uIU/mL (0.27-4.20)
[2020-10-30] MEDS: sodium chloride 0.9% 1,000 ML 75 ML IV ×2 (06:28→23:42)
[2020-10-30 06:31] LABS: Anion Gap 13.7 (5-19); Blood Urea Nitrogen 11 mg/dL (8-23); Calcium 8.5 mg/dL (8.5-10.5); Carbon Dioxide 22 mmol/L (22-29); Chloride 107 mmol/L (98-107); Glucose 115 mg/dL (65-115); Magnesium 2.1 mg/dL (1.7-2.3); Osmolality Calculated 288 mOsm/kg (285-295); Phosphorus 3.3 mg/dL (2.5-4.5); Potassium 3.7 mmol/L (3.5-5.1); Sodium 139 mmol/L (136-145)
--- NOTE | 2020-10-30 08:14 | USCV_ITS ---
Anitha Nasrin Age: 70 Gender: F : 1950 Exam Date: 10/30/2020 13:12 Ordering Phys: Vinicius Gorman MD Technologist: Chilango Rivera [place] [facility] [place]: ? MXOMA BP: 142 / 65 HR: 76 Rhythm: Sinus Technical Quality: Good MEASUREMENTS (Male / Female) Normal Values 2D ECHO LV Diastolic Diameter PLAX 4.0 cm 4.2 - 5.9 / 3.9 - 5.3 cm LV Systolic Diameter PLAX 2.8 cm IVS Diastolic Thickness 1.1 cm 0.6 - 1.0 / 0.6 - 0.9 cm IVS Systolic Thickness 1.2 cm LVPW Diastolic Thickness 1.1 cm 0.6 - 1.0 / 0.6 - 0.9 cm LVPW Systolic Thickness 1.1 cm LVOT Diameter 2.0 cm LV Ejection Fraction 2D Teich 55.4 % LA Diameter 3.8 cm M-MODE LV Diastolic Diameter MM 4.3 cm 4.2 - 5.9 / 3.9 - 5.3 cm LV Systolic Diameter MM 3.1 cm LV Ejection Fraction MM Teich 52.7 % IVS Diastolic Thickness MM 1.0 cm 0.6 - 1.0 / 0.6 - 0.9 cm IVS Systolic Thickness MM 1.3 cm LVPW Diastolic Thickness MM 1.3 cm 0.6 - 1.0 / 0.6 - 0.9 cm LVPW Systolic Thickness MM 1.7 cm RV Diastolic Diameter MM 1.5 cm Aortic Annulus Diameter 3.1 cm LA Ao Ratio MM 1.2 MV E Point Septal Separation 0.9 cm FINDINGS Left Ventricle Diffuse hypokinesia left ventricle with ejection fraction around 40%. Right Ventricle Normal RV size and ejection fraction. Echodensity in the right ventricular free wall, most likely a percent degenerated endocardial structures Right Atrium Moderately increased right atrial size. Left Atrium Moderately increased left atrial size. Mitral Valve Minimally thickened . Aortic Valve Lesley thickened Tricuspid Valve Thickened tricuspid valve. Pulmonic Valve No gross abnormalities noted Pericardium Normal pericardium without effusion. Aorta Normal ascending aorta dimension. CONCLUSIONS Diffuse hypokinesia left ventricle with ejection fraction around 40%. Normal RV size and ejection fraction. Echodensity noted in the free wall of the right ventricle, most likely represent a degenerated endocardial structure. No obvious intracardiac masses noted. Moderate biatrial enlargement Mildly thickened aortic, mitral and tricuspid valves No significant pericardial effusion Dr Deepti Arias MD [facility] (Electronically Signed) Final Date: 30 October 2020 17:29 S
[2020-10-30] MEDS: apixaban 5 mg Tablet PO ×2 (10:18→21:35)
[2020-10-30] MEDS: metoprolol tartrate 25 mg Tablet PO ×2 (10:18→21:35)
[2020-10-30] MEDS: acetaminophen 325 mg Tablet 650 MG PO ×2 (10:21→23:39)
--- NOTE | 2020-10-30 10:57 | PM.PN ---
Subjective Subjective: Interval history: This morning patient was examined, she getting ready for her EEG, she tells me that she just not feeling well, she is having what she describes as a brain fog, no slurring of her speech, no facial droop, no visual changes, but she does at times have word finding difficulty but only in an deep conversation, for simple question she gets most of them right, no upper or lower extremity weakness, no paresthesias, Vitals/I&O/Wt Last Vital Signs Temp 98.3 F 10/30/20 07:59 Pulse 94 10/30/20 07:59 Resp 18 10/30/20 07:59 BP 128/85 10/30/20 07:59 Pulse Ox 96 10/30/20 07:59 10/29/20 10/30/20 10/30/20 22:59 06:59 14:59 Intake Total 1631.25 / 1631.25 678.75 / 2310.00 100 / 100 Balance 1631.25 / 1631.25 678.75 / 2310.00 100 / 100 Weight last 48 hrs Weight 89.403 kg Weight 90.038 kg Weight 87.543 kg Physical Exam Const: COMMON NORMALS: no acute distress and patient oriented x3 HENMT: COMMON NORMALS: normocephalic HEAD & SCALP: normocephalic Neck/C-Spine: COMMON NORMALS: no JVD Resp: COMMON NORMALS: normal respiratory effort, No retractions, No use of accessory muscles and clear to auscultation bilaterally AUSCULTATION: clear to auscultation bilaterally Cardio: COMMON NORMALS: no JVD, regular rate, regular rhythm, S1 normal heart sound present and S2 normal heart sound present RATE: regular rate RHYTHM: regular rhythm HEART SOUNDS: S1 normal heart sound present and S2 normal heart sound present GI: COMMON NORMALS: Normal to inspection, nondistended, normoactive bowel sounds present, Soft to palpation, non-tender, No hepatosplenomegaly present, no masses and no bruits PALPATION: Yes Soft to palpation and Yes No hepatosplenomegaly present Extremity: COMMON NORMALS: capillary refill normal, no clubbing, cyanosis or edema, no calf tenderness and no pedal edema Neuro: COMMON NORMALS: patient oriented x3 Psych: COMMON NORMALS: mental status grossly normal Data : 10/30/20 05:17 10/30/20 05:17 Micro: Microbiology 10/28/20 20:57 Urine Culture - Preliminary Urine,Clean Catch 10/29/20 01:30 Blood Culture - Preliminary Blood NEGATIVE TO DATE 10/29/20 01:39 Blood Culture - Preliminary Blood NEGATIVE TO DATE A&P Assessment and plan (1) Cerebrovascular accident, embolic: -With expressive aphasia at times, brain fog -Tells me that for some time she has had some chest palpitations, but has thought nothing much of it, has been becoming much more frequent in the last 2 weeks, this is when she started to feel weak, fatigued, developing this brain fog -MRI: 1.Acute ischemia involving the left frontal lobe laterally extending into the subinsular cortex described above. Mild associated edema. No significant mass effect or midline shift. 2. Tiny punctate foci of acute ischemia involving the left parietal lobe and right cerebellum. Consider embolic etiologies. 3. Moderate small vessel changes. Moderate parenchymal volume loss. Plan: -Continue Eliquis -Continue metoprolol, monitor heart rates -Continue neurochecks -PT OT, speech therapy Status: Acute (2) Delirium due to general medical condition: -Has finished ciprofloxacin course for urinary tract infection, gets 2 UTIs a year, never hospitalized, no history of resistant organisms, UA positive for leukocyte esterase, WBCs, currently on Rocephin, follow urine cultures -She does have new onset atrial fibrillation, detected during this hospitalization, likely had embolic events -CT of the head was negative for acute stroke -CTA of the head and neck was unremarkable for any significant stenosis -MRI of the brain as above -EEG ordered -Cardiac echocardiogram was a difficult study, possibly shows a right right ventricular echogenic mass, repeat echocardiogram pending -Receiving IV fluids -Neuro checks, monitor mentation Status: Acute (3) New onset atrial fibrillation: -Currently in atrial fibrillation, heart rates were well controlled -Continue metoprolol 25 twice daily -Continue Eliquis 5 mg p.o. every 12 hours -Monitor for bloody black stools, monitor hemoglobin -Cardiac echocardiogram as above -Continue telemetry monitoring Status: Acute (4) Hypertension: Status: Acute (5) Hypothyroidism: Status: Acute (6) UTI (urinary tract infection): Status: Acute Qualifiers: Hematuria presence: without hematuria Urinary tract infection type: acute cystitis Qualified Code(s): N30.00 - Acute cystitis without hematuria Additional A&P Information Given her recent travel, she would like to be tested for COVID-19 Full code Eliquis for DVT prophylaxis Attestations Medical Necessity Statement*: Patient requires hospitalization for embolic CVA, delirium, new onset A. 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
[2020-10-30 14:13] LABS: Coronavirus Test Green County Not Detected
[2020-10-30] MEDS: cefTRIAXone 1,000 MG in sodium chloride 0.9% (plus) 50 ML 100 MG IV (21:34)
[2020-10-31] VITALS: BP 135/89; PULSE 78; RESP 18; TEMP 37.1; O2SAT 96
[2020-10-31 04:00] VITALS: BP 145/91; PULSE 78; RESP 18; TEMP 36.5; O2SAT 95
[2020-10-31] MEDS: levothyroxine 50 mcg Tablet PO (05:23)
[2020-10-31 05:39] LABS: Basophils # 0.1 10^3/uL (0.0-0.1); Basophils % 0.9 %; Eosinophils # 0.1 10^3/uL (0.0-0.8); Eosinophils % 1.2 %; Hematocrit 39.1 % (37.0-47.0); Hemoglobin 12.3 g/dL (11.5-15.3); Lymphocytes # 2.5 10^3/uL (0.8-4.8); Lymphocytes % 30.2 %; Mean Corpuscular HGB Conc 31.5 g/dL (30.0-36.0); Mean Corpuscular Hemoglobin 28.6 pg (28.0-34.0); Mean Corpuscular Volume 90.9 fL (81-99); Mean Platelet Volume 10.1 fL (7.4-10.4); Monocytes # 0.5 10^3/uL (0.2-0.9); Monocytes % 5.7 %; Neutrophils # 4.99 10^3/uL (1.8-7.7); Neutrophils % 61.6 %; Nucleated Red Blood Cells % 0 %; Platelet Count 331 10^3/cmm (130-400); Red Cell Distribution Width 13.8 % (12.1-15.1); White Blood Count 8.1 10^3/uL (4.0-10.0)
[2020-10-31 06:05] LABS: Alanine Aminotransferase 17 U/L (0-33); Albumin Level 3.2 g/dL (3.5-5.2); Alkaline Phosphatase 48 IU/L (35-105); Anion Gap 13.8 (5-19); Aspartate Amino Transferase 15 U/L (0-32); Blood Urea Nitrogen 15 mg/dL (8-23); Calcium 8.2 mg/dL (8.5-10.5); Carbon Dioxide 22 mmol/L (22-29); Chloride 109 mmol/L (98-107); Globulin 2.8 g/dL (1.3-4.6); Glucose 107 mg/dL (65-115); Magnesium 2.2 mg/dL (1.7-2.3); Osmolality Calculated 293 mOsm/kg (285-295); Phosphorus 3.5 mg/dL (2.5-4.5); Potassium 3.8 mmol/L (3.5-5.1); Sodium 141 mmol/L (136-145); Total Bilirubin 0.2 mg/dL (0.15-1.2)
[2020-10-31 07:47] VITALS: BP 139/90; PULSE 81; RESP 18; TEMP 37.1; O2SAT 96
[2020-10-31 08:00] VITALS: PULSE 92
[2020-10-31] MEDS: metoprolol tartrate 25 mg Tablet PO (09:20)
[2020-10-31] MEDS: apixaban 5 mg Tablet PO (09:20)
[2020-10-31] MEDS: aspirin 81 mg EC Tablet PO (09:20)
[2020-10-31] MEDS: atorvastatin 40 mg Tablet 80 MG PO (09:20)
--- NOTE | 2020-10-31 10:49 | PM.DCS ---
Discharge Providers Date of Admission: 10/29/20 00:00 Date of Discharge: October 31, 2020 Attending Provider at Admission: Yaya Lopez Attending Provider at Discharge: Vinicius Gorman MD Primary Care Provider: Jerry Flynn DO Diagnoses at Discharge Discharge Diagnosis (1) Cerebrovascular accident, embolic: Status: Resolved (2) Delirium due to general medical condition: Status: Resolved (3) New onset atrial fibrillation: Status: Acute (4) Hypertension: Status: Acute (5) Hypothyroidism: Status: Acute (6) UTI (urinary tract infection): Status: Resolved Qualifiers: Hematuria presence: without hematuria Urinary tract infection type: acute cystitis Qualified Code(s): N30.00 - Acute cystitis without hematuria Reason for Visit Reason for Visit: AMS Hospital Course Hospital Course This is a 70-year-old female with a past medical history of hypertension, hyperlipidemia, hypothyroidism, who presents to [facility] due to altered mental status initial head CT no acute stroke or intracranial bleed, CTA of the head and neck showed no stenosis or occlusion, thusshe was admitted for altered mental status secondary to possible UTI During her initial hospital stay, patient was found to have expressive aphasia with a brain fog, no other focal neurologic deficits, but with new onset atrial fibrillation, MRI of her brain was ordered which showed acute ischemia involving the left frontal lobe laterally extending into the subinsular cortex, mild associated edema, no midline shift, tiny punctuate foci of acute ischemia involving the left parietal lobe and right cerebellum. Patient worked with physical therapy, no balance issues, no other focal neurologic deficits, no slurring of her speech, no facial droop, but had persistent expressive aphasia, brain fog resolved. She was managed with aspirin, statin, Eliquis, metoprolol. She clinically improved, will be discharged on aspirin 81 mg, atorvastatin 40, Eliquis 5 mg twice daily, Toprol 25 mg twice daily. Patient was advised to follow-up with neurology in the next few weeks. If patient were to have recurrent strokelike symptoms call 911. Patient should monitor for bloody or black stools if so go to emergency room. Follow-up with primary care physician for repeat CBC in 1 week. Patient had an echocardiogram that showed a echodensity noted in the free wall of the right ventricle, most likely representing a degenerated Endo cardial structure, patient should follow-up with cardiology as outpatient. Patient was also found to have diffuse hypokinesia of the left ventricle with an EF of around 40%, no history of chest pain, no history of shortness of breath, no cardiac history, EKG no acute ST-T wave changes, 6-hour troponin 25.46, delta 0.46, ambulating without symptomatology. Case was discussed with cardiology, recommended for patient to follow-up with cardiology as outpatient, consideration for outpatient stress testing. Patient was advised if she were to have chest pain, shortness of breath come back to the emergency room. He discharged on aspirin, statin and beta-madisyn as above. Physical Exam Const: COMMON NORMALS: no acute distress and patient oriented x3 HENMT: COMMON NORMALS: normocephalic HEAD & SCALP: normocephalic Neck/C-Spine: COMMON NORMALS: no JVD Resp: COMMON NORMALS: normal respiratory effort, No retractions, No use of accessory muscles and clear to auscultation bilaterally AUSCULTATION: clear to auscultation bilaterally Cardio: COMMON NORMALS: no JVD, regular rate, regular rhythm, S1 normal heart sound present and S2 normal heart sound present RATE: regular rate RHYTHM: regular rhythm HEART SOUNDS: S1 normal heart sound present and S2 normal heart sound present GI: COMMON NORMALS: Normal to inspection, nondistended, normoactive bowel sounds present, Soft to palpation, non-tender, No hepatosplenomegaly present, no masses and no bruits PALPATION: Yes Soft to palpation and Yes No hepatosplenomegaly present Extremity: COMMON NORMALS: capillary refill normal, no clubbing, cyanosis or edema, no calf tenderness and no pedal edema Neuro: COMMON NORMALS: patient oriented x3 Psych: COMMON NORMALS: mental status grossly normal Discharge Data Data Completed and Pending: Completed Studies During Hospitalization Category Date Time Status CT angio headneck * 40911/63102 Urge nt Cat Scan 10/28/20 23:[address] head wo con* 7 0280 Urgent Cat Scan 10/28/20 20:07 Completed XR chest 1V cori ble [id number] Stat Exams 10/28/20 20:29 Completed MR head wo con* 7 0551 Stat MRI 10/29/20 11:49 Completed CV echo complete* [id number] Routine Ultrasound 10/29/20 07:07 Completed CV echo limited 9 1420 Routine Ultrasound 10/30/20 08:14 Completed US renal BI* [id number] Routine Ultrasound 10/29/20 09:30 Completed Pending at discharge Category Date Time Status EEG electroenceph alogram Routine Exams 10/29/20 11:49 Ordered Blood Culture Sta t Lab 10/29/20 01:30 Results Complete Blood Co unt w/Auto AM LABS Lab 11/01/20 04:00 Ordered Complete Blood Co unt w/Auto AM LABS Lab 11/02/20 04:00 Ordered Comprehensive Met abolic Panel AM LA BS Lab 11/01/20 04:00 Ordered Comprehensive Met abolic Panel AM LA BS Lab 11/02/20 04:00 Ordered Magnesium AM LABS Lab 11/01/20 04:00 Ordered Magnesium AM LABS Lab 11/02/20 04:00 Ordered Phosphorus AM LAB S Lab 11/01/20 04:00 Ordered Phosphorus AM LAB S Lab 11/02/20 04:00 Ordered Labs from last 24 hours 10/31/20 10/31/20 10/29/20 04:47 04:47 16:10 WBC 8.1 RBC 4.30 Hgb 12.3 Hct 39.1 MCV 90.9 MCH 28.6 MCHC 31.5 RDW 13.8 Plt Count 331 MPV 10.1 Neut % (Auto) 61.6 Lymph % (Auto) 30.2 Lander % (Auto) 5.7 Eos % (Auto) 1.2 Baso % (Auto) 0.9 Neut # (Auto) 4.99 Lymph # (Auto) 2.5 Lander # (Auto) 0.5 Eos # (Auto) 0.1 Baso # (Auto) 0.1 Nucleated RBC % (a uto) 0 Nucleated RBCs # 0.0 Sodium 141 Potassium 3.8 Chloride 109 H Carbon Dioxide 22 Anion Gap 13.8 BUN 15 Creatinine 0.7 GFR Calculation Not Reportable Glucose 107 Calculated Osmolal ity 293 Calcium 8.2 L Phosphorus 3.5 Magnesium 2.2 Total Bilirubin 0.2 AST 15 ALT 17 Alkaline Phosphata se 48 Total Protein 6.0 L Albumin 3.2 L Globulin 2.8 Nasal/Oral COVID-1 9 PCR Not detected Vitals: Last Vital Signs Temp 98.7 F 10/31/20 07:47 Pulse 81 10/31/20 07:47 Resp 18 10/31/20 07:47 BP 139/90 10/31/20 07:47 Pulse Ox 96 10/31/20 07:47 Discharge Plan Discharge Patient Disposition: Home Condition: Stable Prescriptions: New atorvastatin 40 mg Tablet 80 mg PO DAILY 30 Days Qty: 30 RF: 0 aspirin 81 mg Tablet,Delayed Release (Dr/Ec) 81 mg PO DAILY 30 Days Qty: 30 RF: 0 metoprolol tartrate 25 mg Tablet 25 mg PO Q12H 30 Days Qty: 60 RF: 0 Eliquis 5 mg Tablet 5 mg PO Q12H 30 Days Qty: 60 RF: 0 Continued levothyroxine 75 mcg tablet 75 mcg PO DAILY@08 RF: 0 Changed lisinopril 40 mg tablet 20 mg PO DAILY@08 Qty: 0 RF: 0 Discontinued hydrochlorothiazide 25 mg tablet 12.5 mg PO DAILY@08 RF: 0 Discharge Orders: Discharge Order (Routine); Ordered 10/31/20 Ordered By: Vinicius Gorman Other Ambulatory Orders: Speech Language Pathology Eval and Treat Outpatient (Order) Timeframe: 1 Week Facility: [facility] - Location: Occup[facility] [place] Ordered By: Vinicius Gorman Referrals: Jessi Quesada MD [Physician] - 11/12/20 8:45 am (f/u hospitalization for embolic stroke) Andrew Villalta M.D [Physician] - 11/14/20 12:30 pm Jerry Flynn DO [Primary Care Provider] - (PLEASE CALL FOR APPOINTMENT [phone]) Discharge Diet: Cardiac Discharge Activity: Resume usual activity Patient Instructions: Atrial Fibrillation, Metoprolol (By mouth), Aspirin (By mouth), Atorvastatin (By mouth), Apixaban (By mouth), Low Fat Diet (GEN), Cholesterol and Your Health (GEN), Self Care Measures After a Stroke (DC) Activity Restrictions/Additional Instructions: -For your stroke: -Take aspirin, statin as prescribed -Take Eliquis as prescribed -If you have recurrent strokelike symptoms go to the emergency room or call 911 -I have referred you to for speech pathology for expressive aphasia -As you are on 2 blood thinners please monitor for bloody or black stools if so go to the emergency room -Follow-up with primary care provider in the next few days for repeat CBC -For your heart atrial fibrillation, use Eliquis and metoprolol as prescribed -For reduction in function, follow-up with cardiology in 2 to 4 weeks Discharge Attestations Time Spent in Discharge Care*: greater than 30 min Quality Metrics Clinical Quality Measures During this hospital stay, did patient experience: None Coding Level of Care Code Acute Prosthetic Aide for g Fwd Exam Comprehensive Diagnoses Cerebrovascular accident, embolic I63.9 Delirium due to general medical condition F05 New onset atrial fibrillation I48.91 Hypertension I10 Hypothyroidism E03.9 UTI (urinary tract infection) N30.00 Hematuria presence: without hematuria Urinary tract infection type: acute cystitis
[2020-10-31 12:00] VITALS: BP 126/90; PULSE 89; RESP 19; TEMP 36.9; O2SAT 94
[2020-10-31 13:56] VITALS: BP 126/90; PULSE 89; RESP 19; TEMP 36.9; O2SAT 94
--- NOTE | 2020-10-31 13:58 | PC.NURSE ---
pt iv taken out and intact. pt discharge instructions explained and all questions answered.
--- NOTE | 2020-10-31 16:11 | PM.MISC ---
Miscellaneous Note Purpose of Documentation: EEG Note: ORDERING PHYSICIAN: Vinicius Coulter MD REASON FOR STUDY: Altered mental status. STUDY: This was a 21 channel digital electroencephalogram performed using the 10-20 international system of electrode placement. This study was performed at the bedside and was therefore fraught with multiple artifacts. This study was non-sleep deprived and the patient was awake, and drowsy. Photic stimulation and hyperventilation were included. FINDINGS: The waking background was characterized by well-modulated posterior alpha at 10 hertz, symmetric and of moderate voltage. There were periods of drowsiness characterized by mild diffuse slowing. Waxing and waning of the level of drowsiness was seen throughout the midportion of the tracing with multiple arousals. Photic stimulation produced a bilateral driving response in the occipital leads without any evidence of a photoconvulsive response. Hyperventilation for three minutes was performed well and had an alerting effect. No focal, lateralizing or epileptiform activity was seen. IMPRESSION: This was a normal routine EEG, awake and drowsy, with no behavioral or electrographic epileptiform activity. A normal EEG does not exclude a diagnosis of epilepsy. A sleep deprived tracing is recommended if seizures are strongly suspected. Duration of EE.9
--- NOTE | 2020-11-02 07:39 | PC.SOCIAL ---
Pt called about CBC this was not ordered at DC but is in DC summary. Called Dr Flynn office let them know was mentioned in DC summary and they have a message in to Dr Flynn to see if will order and they will call her back with an appt time and verfication of CBC.
== END 2020-10-31 14:19 | disposition home or self-care (01) | DRG 689 ==
LOC: ER 10-29 00:23 → MEDSURG 10-29 00:24
PROVIDERS: Admitting Provider Internal Medicine; Emergency Provider Family Medicine; PCP Family Medicine; Visit Provider Family Medicine
DX: N30.00 Acute cystitis without hematuria (principal); G93.41 Metabolic encephalopathy; I63.442 Cerebral infarction due to embolism of left cerebellar artery; F05 Delirium due to known physiological condition; R47.01 Aphasia; I10 Essential (primary) hypertension; E03.9 Hypothyroidism, unspecified; Q82.8 Other specified congenital malformations of skin; I48.91 Unspecified atrial fibrillation; R29.700 NIHSS score 0
CPT/HCPCS: 12345; 36415; 70450; 70496; 70498; 70551; 71045; 76770; 80048; 80053; 80306; 80307; 81001; 83605; 83735; 83880; 84100; 84145; 84443; 84484; 85025; 85610; 86140; 87040; 87086; 87426; 87635; 92507; 92526; 92610; 93005; 93306; 93308; 97161; 97165; 99283; J0696; J1650; J3490; J7030; Q9967

== ENCOUNTER 2020-11-02 09:52 | Outpatient (RCR) | payer MEDICARE, SELFPAY | END 2020-11-18 23:59 | disposition home or self-care (01) | LOC: SST 09:52 | PROVIDERS: PCP Family Medicine; Referring Provider Family Medicine; Visit Provider Family Medicine | DX: I63.9 Cerebral infarction, unspecified (principal) | CPT/HCPCS: 92507; 96105 ==

== ENCOUNTER 2020-11-05 10:51 | Outpatient (CLI) | payer MEDICARE, SELFPAY ==
[2020-11-05 11:13] LABS: Basophils # 0.1 10^3/uL (0.0-0.1); Basophils % 0.8 %; Eosinophils # 0.1 10^3/uL (0.0-0.8); Eosinophils % 0.9 %; Hematocrit 41.5 % (37.0-47.0); Hemoglobin 13.4 g/dL (11.5-15.3); Lymphocytes # 1.8 10^3/uL (0.8-4.8); Lymphocytes % 19.5 %; Mean Corpuscular HGB Conc 32.3 g/dL (30.0-36.0); Mean Corpuscular Hemoglobin 28.8 pg (28.0-34.0); Mean Corpuscular Volume 89.2 fL (81-99); Mean Platelet Volume 11.2 fL (7.4-10.4); Monocytes # 0.7 10^3/uL (0.2-0.9); Monocytes % 7.5 %; Neutrophils # 6.49 10^3/uL (1.8-7.7); Neutrophils % 70.9 %; Nucleated Red Blood Cells % 0 %; Platelet Count 391 10^3/cmm (130-400); Red Blood Count 4.65 10^6/uL (4.1-5.3); White Blood Count 9.2 10^3/uL (4.0-10.0)
== END 2020-11-05 10:52 | disposition home or self-care (01) ==
LOC: LAB 10:53
PROVIDERS: PCP Family Medicine; Visit Provider Family Medicine
DX: D64.9 Anemia, unspecified (principal)
CPT/HCPCS: 85025

== ENCOUNTER 2020-11-19 06:00 | Outpatient (RCR) | payer MEDICARE, SELFPAY | END 2020-12-19 23:59 | disposition home or self-care (01) | LOC: SST 06:00 | PROVIDERS: PCP Family Medicine; Referring Provider Family Medicine; Visit Provider Family Medicine | DX: I63.9 Cerebral infarction, unspecified (principal) | CPT/HCPCS: 92507 ==

== ENCOUNTER 2020-12-23 10:03 | Emergency (ER) | payer MEDICARE, SELFPAY ==
[2020-12-23 10:04] VITALS: BP 150/108; PULSE 103; RESP 16; TEMP 36.3; O2SAT 96; BMI 27.3
[2020-12-23 10:10] VITALS: O2SAT 95
[2020-12-23] MEDS: ondansetron 2 mg/ML SDV 2 mL 4 MG IVP (10:33)
[2020-12-23] MEDS: fentaNYL 50 mcg/mL INJ 2mL 75 MCG IVP (10:34)
[2020-12-23] MEDS: tranexamic acid 1,000 mg/10mL SDV XX (10:36)
--- NOTE | 2020-12-23 10:43 | PC.NURSE ---
rhino rocket placed in right nare at 1036. ED provider *2 at pt's bedside.
[2020-12-23 10:54] LABS: Basophils # 0.1 10^3/uL (0.0-0.1); Basophils % 0.7 %; Eosinophils # 0.1 10^3/uL (0.0-0.8); Eosinophils % 0.9 %; Hematocrit 43.2 % (37.0-47.0); Hemoglobin 13.4 g/dL (11.5-15.3); Lymphocytes # 2.3 10^3/uL (0.8-4.8); Lymphocytes % 23.7 %; Mean Corpuscular Hemoglobin 27.9 pg (28.0-34.0); Mean Platelet Volume 10.3 fL (7.4-10.4); Monocytes # 0.7 10^3/uL (0.2-0.9); Monocytes % 7.1 %; Neutrophils # 6.39 10^3/uL (1.8-7.7); Neutrophils % 67.3 %; Nucleated Red Blood Cells % 0 %; Platelet Count 304 10^3/cmm (130-400); White Blood Count 9.5 10^3/uL (4.0-10.0)
[2020-12-23 10:59] LABS: INR 1.44 (0.8-1.2)
[2020-12-23 11:00] LABS: Partial Thromboplastin Time 30.9 SECONDS (23.9-36.7)
[2020-12-23 11:01] LABS: Alanine Aminotransferase 12 U/L (0-33); Alkaline Phosphatase 62 IU/L (35-105); Anion Gap 11.2 (5-19); Aspartate Amino Transferase 18 U/L (0-32); Blood Urea Nitrogen 17 mg/dL (8-23); Calcium 9.5 mg/dL (8.5-10.5); Carbon Dioxide 30 mmol/L (22-29); Chloride 100 mmol/L (98-107); Creatinine Clr Calc Pharmacy 71.2453; Globulin 2.7 g/dL (1.3-4.6); Glucose 132 mg/dL (65-115); Osmolality Calculated 289 mOsm/kg (285-295); Potassium 3.2 mmol/L (3.5-5.1); Sodium 138 mmol/L (136-145); Total Bilirubin 0.9 mg/dL (0.15-1.2); Total Protein 6.7 g/dL (6.6-8.7)
[2020-12-23 11:03] VITALS: BP 134/91; PULSE 80; O2SAT 94
[2020-12-23] MEDS: lactated ringers 500 ML 999 ML IV (11:10)
--- NOTE | 2020-12-23 11:12 | W.ED.EPISTAX ---
HPI - Epistaxis General: Chief complaint: Epistaxis Stated complaint: Nose Bleed Time Seen by Provider: 12/23/20 10:05 Source: patient and family (daughter) Mode of arrival: ambulatory Limitations: no limitations History of Present Illness: HPI Narrative: Pleasant 70-year-old female patient presents to the emergency department with nosebleed, onset was at 8:00 AM this morning. She denies trauma, nasal injury or foreign body in the nose. She reports is on Eliquis due to atrial fibrillation and stroke. She reports similar incident that occurred last year with packing that was required. She did not follow-up with ENT. Has not had any further problems or complaints with nosebleeds until today. She denies fever chills, nausea or vomiting. MD complaint: epistaxis Location: right nostril Duration: constant Context: history of previous and other anticoagulant use Associated symptoms: Reports no associated symptoms; Deny fever(s), headache(s) or vomiting Treatment prior to arrival: nose pinching Review of Systems General: Reports: 10 or more systems reviewed and unremarkable except in HPI and below Const: Denies: fever(s), chills or diaphoresis Eyes: Denies: blurry vision or eye redness ENMT: Reports: nasal congestion and epistaxis; Denies: throat pain, hoarseness, mouth pain, dental pain, dry mouth, halitosis or disequilibrium Card: Denies: chest pain, palpitations or irregular heart rhythm Resp: Denies: dyspnea, productive cough, non-productive cough or wheezing GI: Denies: abdominal pain, nausea or vomiting : Denies: difficulty voiding or dysuria Musc: Denies: neck pain, back pain, joint pain or joint warmth Skin/Breast: Denies: rash or pruritus Neuro: Denies: headache(s), weakness in extremities or behavioral changes Psych: Denies: anxiety or depression Newton/Lymph: Denies: easy bruising PFSH ED PFSH: Medical History Hypertension Hypothyroidism Plantar porokeratosis, acquired Family History (Updated 11/17/20 @ 21:41 by Andrew Villalta M.D) Other Cerebral hemorrhage Social History Smoking and tobacco status: never smoked Alcohol intake: current Alcohol intake frequency: few times a month Household members: none Current occupational status: other 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 Physical Exam Const: COMMON NORMALS: no acute distress, patient oriented x3, healthy appearing and alert GENERAL APPEARANCE: cooperative, well kempt, well developed, frail appearing and well hydrated NUTRITIONAL APPEARANCE: thin ORIENTATION/CONSCIOUSNESS: Yes awake, Yes oriented to person, Yes oriented to place and Yes oriented to time HENMT: COMMON NORMALS: normocephalic, atraumatic and moist oral mucous membranes HEAD & SCALP: normal to inspection, normocephalic and atraumatic FACE & SINUS: normal facial exam and face symmetric NOSE: Abnormal external nose present nasal tenderness and Epistaxis present on the right active bleeding, clots present and source not visualized MOUTH: Normal oral and palatal mucosa present, lip normal and tongue normal THROAT: posterior oropharynx abnormal (bleeding from upper airway/nose bleed present) Eye: COMMON NORMALS: Equal, round and reactive pupils present, EOMs intact bilaterally and conjunctivae normal GENERAL EYE: appearance normal, both eyes and all related structures CONJUNCTIVA: Yes conjunctivae normal CORNEA: Yes corneas normal PUPIL: Yes Equal, round and reactive pupils present Neck/C-Spine: COMMON NORMALS: full ROM and no lymphadenopathy GENERAL: Yes normal visual inspection and Yes trachea midline CERVICAL SPINE: Yes cervical ROM normal Lymph: LYMPHATIC: no lymphadenopathy noted Chest: COMMONS NORMALS: normal inspection of the chest and normal palpation of entire chest wall Resp: COMMON NORMALS: normal respiratory effort, No retractions, No use of accessory muscles and clear to auscultation bilaterally EFFORT & INSPECTION: Yes able to speak in complete sentences AUSCULTATION: clear to auscultation bilaterally Cardio: COMMON NORMALS: regular rate, regular rhythm, S1 normal heart sound present, S2 normal heart sound present and Peripheral pulses 2+ throughout RATE: regular rate RHYTHM: regular rhythm HEART SOUNDS: S1 normal heart sound present and S2 normal heart sound present PERIPHERAL PULSES: Peripheral pulses 2+ throughout GI: COMMON NORMALS: Soft to palpation and non-tender INSPECTION: Yes normal to inspection PALPATION: Yes Soft to palpation : COMMON NORMALS: Yes no CVA tenderness BLADDER/KIDNEY EXAM: Yes no CVA tenderness Back/Pelvis: COMMON NORMALS: no CVA tenderness and thoracic and lumbar spine normal to inspection Extremity: COMMON NORMALS: normal to inspection and capillary refill normal Neuro: COMMON NORMALS: patient oriented x3 and no focal motor deficits SENSORIUM/ORIENTATION: Yes alert, Yes oriented to person, Yes oriented to place and Yes oriented to time Psych: COMMON NORMALS: mental status grossly normal, Normal thought process present and cooperative APPEARANCE: Yes well kempt ACTIVITY/MOTOR BEHAVIOR: Yes appropriate eye contact THOUGHT PROCESS: Normal thought process present Skin: COMMON NORMALS: no rashes or lesions noted and turgor normal GENERAL SKIN EXAM: no rashes or lesions noted and turgor normal Course Vital Signs: Vital signs: Vital Signs Temperature 97.3 F L 12/23/20 10:04 Pulse Rate 80 12/23/20 11:03 Respiratory Rate 16 12/23/20 10:04 Blood Pressure 134/91 12/23/20 11:03 Pulse Oximetry 94 12/23/20 11:03 MDM - Epistaxis MDM Narrative: Medical decision making narrative: Patient actively bleeding, large amount noted from the right nare, Alfonzo-Synephrine administered with nasal clamping to help with bleeding. This did slow bleed from the right nostril. Dr. Foster was notified of bleeding, TXA with anterior nasal tampon placed right nare. fentanyl with Zofran administered, patient was uncomfortable with procedure. Patient was monitored here in the ED for further bleeding post placement. Posterior pharynx continued to be free of bleeding, she no longer exhibited bleeding from the right nare. Nasal tampon remained intact during her stay-she was comfortable, did not complain of pain, she was requesting to go home, agrees for follow-up with ENT next week, she was placed on Augmentin 3 times daily. Case discussed with Dr. Foster prior to discharge. She agrees to return to the emergency department if she develops worsening symptoms such as return of nosebleed, dislodgment of the nasal tampon or other concerning symptoms. She is advised to take Tylenol as needed for pain. Hemoglobin was stable, INR 1.44, PTT was normal. Chemistry without acute abnormalities. Lab Data: Labs: Lab Results 12/23/20 12/23/20 12/23/20 Range/Units 10:30 10:30 10:30 WBC 9.5 (4.0-10.0) 10^3/ uL RBC 4.80 (4.1-5.3) 10^6/u L Hgb 13.4 (11.5-15.3) g/dL Hct 43.2 (37.0-47.0) % MCV 90.0 (81-99) fL MCH 27.9 L (28.0-34.0) pg MCHC 31.0 (30.0-36.0) g/dL RDW 15.0 (12.1-15.1) % Plt Count 304 (130-400) 10^3/c mm MPV 10.3 (7.4-10.4) fL Neut % (Auto) 67.3 % Lymph % (Auto) 23.7 % Heard % (Auto) 7.1 % Eos % (Auto) 0.9 % Baso % (Auto) 0.7 % Neut # (Auto) 6.39 (1.8-7.7) 10^3/u L Lymph # (Auto) 2.3 (0.8-4.8) 10^3/u L Heard # (Auto) 0.7 (0.2-0.9) 10^3/u L Eos # (Auto) 0.1 (0.0-0.8) 10^3/u L Baso # (Auto) 0.1 (0.0-0.1) 10^3/u L Nucleated RBC % (a uto) 0 % Nucleated RBCs # 0.0 /100WBC PT 18.00 H (12.1-14.9) SECO NDS INR 1.44 H (0.8-1.2) APTT 30.9 (23.9-36.7) SECO NDS Sodium 138 (136-145) mmol/L Potassium 3.2 L (3.5-5.1) mmol/L Chloride 100 (98-107) mmol/L Carbon Dioxide 30 H (22-29) mmol/L Anion Gap 11.2 (5-19) BUN 17 (8-23) mg/dL Creatinine 0.7 (0.5-0.9) mg/dL GFR Calculation Not Reportable Glucose 132 H (65-115) mg/dL Calculated Osmolal ity 289 (285-295) mOsm/k g Calcium 9.5 (8.5-10.5) mg/dL Total Bilirubin 0.9 (0.15-1.2) mg/dL AST 18 (0-32) U/L ALT 12 (0-33) U/L Alkaline Phosphata se 62 (35-105) IU/L Total Protein 6.7 (6.6-8.7) g/dL Albumin 4.0 (3.5-5.2) g/dL Globulin 2.7 (1.3-4.6) g/dL Discharge Plan Discharge Patient Disposition: Home Clinical Impression: Epistaxis Condition: Stable Prescriptions: New Augmentin 500-125 mg tablet 1 tab PO TID Qty: 21 RF: 0 Held aspirin 81 mg Tablet,Chewable 81 mg PO DAILY@08 RF: 0 Hold Instructions: Resume on 12/25/20. Eliquis 5 mg tablet 5 mg PO BID@08,20 RF: 0 Hold Instructions: Resume on 12/25/20. No Action levothyroxine 75 mcg tablet 75 mcg PO DAILY@08 RF: 0 lisinopril 40 mg tablet 20 mg PO DAILY@08 Qty: 0 RF: 0 metoprolol tartrate 50 mg tablet 50 mg PO BID@08,20 RF: 0 hydrochlorothiazide 25 mg tablet 25 mg PO DAILY@08 RF: 0 Discharge Orders: Discharge ED (Routine); Ordered 12/23/20 Ordered By: Kelly Artis Referrals: Jerry Flynn DO [Primary Care Provider] - Discharge Diet: Usual diet Discharge Activity: Limit activity as instructed Patient Instructions: Epistaxis (ED), Opioid Safety Activity Restrictions/Additional Instructions: Take amoxicillin 3 times daily until all gone, take with food to avoid stomach upset Do not pick your nose, blow your nose or engage in vigorous activity, rest at home today and tomorrow, criminal justice social worker will be contacting you with an appointment to follow-up with ear nose and throat specialty. Hold aspirin and Eliquis until follow-up with ENT Return to the emergency department if you develop further nose bleeding, if nasal tampon becomes disengaged or if further symptoms occur Take Tylenol as needed for pain, do not take ibuprofen or other NSAIDs as this can cause blood thinning and increased bleeding risk. Coding Level of Care Code ED Personal [employer] Trainer for [facility] Exam Comprehensive
--- NOTE | 2020-12-24 11:13 | DCPLANNER ---
manager commercial real estate had message to schedule a follow up appointment for patient with ENT. manager commercial real estate emailed patients information to Pia Ferreira and Tootie with [facility]. Patients information will be printed and reviewed. Clinic will call patient with appointment information.
--- NOTE | 2020-12-26 13:20 | DCPLANNER ---
manager reimbursement was contacted and stated that when clinic called patient to schedule a followup appointment that patient had a follow up appointment scheduled with another provider.
== END 2020-12-23 12:24 | disposition home or self-care (01) ==
PROVIDERS: Emergency Provider Nurse Practitioner Family; PCP Family Medicine
DX: R04.0 Epistaxis (principal); Z79.82 Long term (current) use of aspirin; I10 Essential (primary) hypertension
CPT/HCPCS: 80053; 85025; 85610; 85730; 96361; 96374; 96375; 99284; J2405; J3010

== ENCOUNTER 2022-01-15 17:21 | Observation (INO) | payer MEDICARE, SELFPAY ==
[2022-01-15] VITALS (14 sets, daily range): BP systolic 101–149; BP diastolic 63–93; PULSE 78–101; RESP 15–28; O2SAT 92–98
--- NOTE | 2022-01-15 17:28 | ECG_ITS ---
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 Measurements Intervals [place] Rate: 101 P: 67 MT: 140 QRS: -34 QRSD: 99 T: 35 QT: 345 QTc: 448 Interpretive Statements SINUS TACHYCARDIA WITH FREQUENT SUPRAVENTRICULAR PREMATURE COMPLEXES LEFT AXIS DEVIATION [QRS AXIS < -30] LOW QRS VOLTAGE IN PRECORDIAL LEADS [QRS DEFLECTION < 1.0 mV IN CHEST LEADS] PATTERN CONSISTENT WITH PULMONARY DISEASE ST DEVIATION AND MODERATE T-WAVE ABNORMALITY, CONSIDER ANTERIOR ISCHEMIA [-0.1+ mV T-WAVE IN V3/V4] Compared to ECG 10/29/2020 17:25:27 Low QRS voltage now present Possible ischemia now present Atrial fibrillation no longer present T-wave abnormality still present Electronically Signed On 01-16-2022 17:00:31 CDT by Andrew Villalta M.D. [id number]
--- NOTE | 2022-01-15 17:29 | XRR_ITS ---
PROCEDURE INFORMATION: Exam: XR Chest Exam date and time: 01/15/2022 6:01 PM Age: 71 years old Clinical indication: Other: Suicidal ideations, AMS; Additional info: Eval for pna TECHNIQUE: Imaging protocol: XR of the chest. Views: 1 view. COMPARISON: CR XR chest 1V portable [id number] 10/28/2020 9:13 PM FINDINGS: Lungs: Left lower lobe atelectasis versus minimal infiltrate. Pleural spaces: Unremarkable. No pleural effusion. No pneumothorax. Heart/Mediastinum: Cardiomegaly and mild pulmonary vascular congestion. Bones/joints: Unremarkable. XR/XR chest 1V portable [id number] IMPRESSION: 1. Cardiomegaly and mild pulmonary vascular congestion. 2. Left lower lobe atelectasis versus minimal infiltrate.
--- NOTE | 2022-01-15 17:46 | ED_ITS ---
HPI - General Adult General: Chief complaint: Psychiatric Symptoms Stated complaint: SUICIDAL IDEATIONS Time Seen by Provider: 01/15/22 17:28 History of Present Illness: Patient is a 71-year-old female with a history of atrial fibrillation on watchman, hypertension, hyperlipidemia who presents the emergency room for evaluation of possible SI. Earlier today, please officer evaluate patient and told me the patient was feeling depressed and suicidal. Patient does not actively have a plan and has no reporting plan to police radio dispatcher. On arrival, patient tells me that she does not feel suicidal but feels sad. Patient tells me that her son about a year ago. Since then patient has had difficulty coping with her son's . In addition, for the last 3 days, patient has been having headache after her travel to [place]. Patient notes that she has muscle ache and thinks I may be coming down with the flu. Patient tells me that she has had headaches for the last 3 days and is feeling tired. Patient reports that this is not worst headache of life and sudden in onset. Did not reach maximal intensity over first 1-2 hours. Patient denies any focal neurological deficit, fall, injury or trauma. Patient is not on any anticoagulation. Patient denies any chest pain, shortness, palpitation, lightheadedness, nausea/vomiting, diarrhea, melena/hematochezia, complaints or other focal abdominal complaints. Patient tells me that she would not like to take any medicine for her depression at this time. Patient tells me that she has had a depressive episode last year. Patient denies having any access to weapons, active plan or thoughts about hurting herself. Patient tells me that she only has a passive wish because of ongoing headache that she is deali ng with. Patient denies any neck pain, fever/chills, photophobia, cough, runny nose, or sore throat. Onset:3 days ago Duration:3 days Location:home Severity:moderate Associated symptoms: Reports headache(s); Deny chest pain, dyspnea, nausea, rash, palpitations or vomiting Review of Systems Const: Denies: fever(s) or chills Eyes: Denies: change in vision ENMT: Denies: mouth pain Card: Denies: chest pain or palpitations Resp: Denies: dyspnea or non-productive cough GI: Denies: abdominal pain, nausea, vomiting or diarrhea : Denies: dysuria Musc: Denies: extremity pain Skin/Breast: Denies: rash or new lesions Neuro: Reports: headache(s); Denies: weakness in extremities Psych: Reports: depression [place]/Lymph: Denies: easy bruising PFS ED PFSH: Medical History Hypertension Hypothyroidism Plantar porokeratosis, acquired Family History Other Cerebral hemorrhage Social History Smoking and tobacco status: never smoked Alcohol intake: current Alcohol intake frequency: few times a month Household members: none Current occupational status: other 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 Physical Exam Const: COMMON NORMALS: alert HENMT: COMMON NORMALS: atraumatic HEAD & SCALP: atraumatic MOUTH: moist mucous membranes not abnormal Eye: COMMON NORMALS: EOMs intact bilaterally and conjunctivae normal CONJUNCTIVA: Yes conjunctivae normal Neck/C-Spine: COMMON NORMALS: full ROM and supple OTHER: + No nuchal rigidity Resp: COMMON NORMALS: normal respiratory effort and clear to auscultation bilaterally AUSCULTATION: clear to auscultation bilaterally Cardio: COMMON NORMALS: regular rate RATE: regular rate GI: COMMON NORMALS: Soft to palpation and non-tender PALPATION: Yes Soft to palpation Extremity: COMMON NORMALS: full ROM Neuro: SENSORIUM/ORIENTATION: Yes alert MOTOR EXAM: No Abnormal motor strength present and Other motor observations present (no focal motor deficits) Psych: COMMON NORMALS: speech normal SPEECH: Yes normal speech MOOD & AFFECT: Yes euthymic mood Course Vital Signs: Vital signs: Vital Signs Temperature 98.3 F 01/16/22 15:45 Pulse Rate 75 01/16/22 15:45 Respiratory Rate 18 01/16/22 15:45 Blood Pressure 130/75 01/16/22 15:45 Pulse Oximetry 94 01/16/22 15:45 [facility] - General Adult Medical Decision Making 71-year-old female presenting to the emergency room for concerns of possible suicidal ideation and headache. On physical exam, patient has no nuchal rigidity. Neuro exam is grossly intact. Presently, patient denies any suicidal ideation. Discussed case with patient's family members including Ivelisse who tells me patient is not suicidal. In addition, have discussed case with patient's friend Merle Frank who also reports the patient's not suicidal but may be dealing with depression. I discussed this with Dr. Schmidt evaluate patient at bedside and does not think that patient's requires inpatient hospitalization. I have given patient close follow-up with [facility]. Patient declines to be started on medicine at this time. CT head negative for any acute finding. Lab work-up within normal limit. X-ray chest UA is negative for any acute findings. Do not suspect abdominal status at this time. Patient's friend Merle would like to stay with patient for the night. 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 Merle is told to bring the patient back for any signs or concerns for self-harm or any new or concerning complaints. Reports headache today. I doubt that this is subarachnoid bleed given the fact the patient has not had worse headache of his life, headaches associate with other symptoms, has no family history of aneurysm. CT brain negative for any acute finding. Patient has no strokelike symptoms. Afebrile minimal white count, do not suspect meningitis. Patient received IVF, magnesium sulfate, Tylenol, and morphine and reports headache improved. I have discussed case with multiple family members including Ivelisse Mosley and Merle Frank who is concerned the patient's not able to take care of herself at home and thinks that patient has become more altered over the last few days and tells me that they can probably take her home tomorrow morning. Friends concerned that she is may not be able to take care of herself overnight and would like her to stay in the hospital for observation. Dispoosition: observation Lab Data : 01/16/22 08:48 01/16/22 08:48 Radiology Impressions Chest X-Ray 01/15/22 17:29 IMPRESSION: 1. Cardiomegaly and mild pulmonary vascular congestion. 2. Left lower lobe atelectasis versus minimal infiltrate. Head CT 01/15/22 18:19 IMPRESSION: Negative for intracranial hemorrhage or mass effect Head MRI 01/16/22 01:42 IMPRESSION: 1. No evidence of restricted diffusion to suggest acute ischemia. 2. Moderate small vessel changes with moderate parenchymal volume loss. 3. Chronic gliosis in the LEFT frontal lobe and insula along the area of prior infarct. No significant edema or mass effect today. 4. Mild symmetric atrophy temporal lobes and hippocampal formations. 5. No hemosiderin on susceptibly weighted images. 6. No other significant changes from previous. Laboratory Results WBC 4.4 10^3/uL (4.0-10.0) 01/15/22 17:55 RBC 4.88 10^6/uL (4.1-5.3) 01/15/22 17:55 Hgb 14.1 g/dL (11.5-15.3) 01/15/22 17:55 Hct 40.7 % (37.0-47.0) 01/15/22 17:55 MCV 83.4 fl (81-99) 01/15/22 17:55 MCH 28.9 pg (28.0-34.0) 01/15/22 17:55 MCHC 34.6 g/dL (30.0-36.0) 01/15/22 17:55 RDW 13.3 % (12.1-15.1) 01/15/22 17:55 Plt Count 75 10^3/cmm (130-400) L 01/15/22 17:55 MPV 12.1 fL (7.4-10.4) H 01/15/22 17:55 Lymph % (Auto) Not Reportable 01/15/22 17:55 [place] % (Auto) Not Reportable 01/15/22 17:55 Lymph # (Auto) Not Reportable 01/15/22 17:55 [place] # (Auto) Not Reportable 01/15/22 17:55 Total Counted 100 (0-100) 01/15/22 17:55 Atypical Lymphs % 3.0 % (0-5) 01/15/22 17:55 Absolute Neutrophils 3.3 10^3/cmm (1.4-6.5) 01/15/22 17:55 Segmented Neutrophils 47 % 01/15/22 17:55 Abs Segm Neuts (Man) 2.1 10/cmm (1.6-7.1) 01/15/22 17:55 Band Neutrophils 27.0 % 01/15/22 17:55 Abs Band Neuts (Man) 1.2 10^3/cmm (0.0-1.2) 01/15/22 17:55 Absolute Lymphocytes 0.8 10^3/cmm (1.2-3.4) L 01/15/22 17:55 Lymphocytes (Manual) 16 % 01/15/22 17:55 Monocytes (Manual) 6.0 % 01/15/22 17:55 Absolute Monocytes 0.3 10^3/cmm (0.1-0.6) 01/15/22 17:55 Eosinophils (Manual) 0 % 01/15/22 17:55 Absolute Eosinophils 0.0 10^3/cmm (0.0-0.7) 01/15/22 17:55 Basophils (Manual) 0.0 % 01/15/22 17: Absolute Basophils 0.0 10^3/cmm (0.0-0.2) 01/15/22 17:55 Metamyelocytes 1.0 % 01/15/22 17: Myelocytes 0.0 % 01/15/22 17: Promyelocytes 0.0 % 01/15/22 17: Nucleated RBCs 0.0 /100WBC (0-1) 01/15/22 17:55 Blast Cells 0 % (0-0) 01/15/22 17:55 Platelet Estimate Decreased (Normal) L 01/15/22 17:55 Giant Platelets Trace 01/15/22 17:55 Sodium 129 mmol/L (136-145) L 01/15/22 18:52 Potassium 3.1 mmol/L (3.5-5.1) L 01/15/22 18:52 Chloride 90 mmol/L (98-107) L 01/15/22 18:52 Carbon Dioxide 27 mmol/L (22-29) 01/15/22 18:52 Anion Gap 15.1 (5-19) 01/15/22 18:52 BUN 15 mg/dL (8-23) 01/15/22 18:52 Creatinine 0.7 mg/dL (0.5-0.9) 01/15/22 18:52 GFR Calculation Not Reportable 01/15/22 18:52 Glucose 154 mg/dL (65-115) H 01/15/22 18:52 Calculated Osmolality 272 mOsm/kg (285-295) L 01/15/22 18:52 Calcium 9.0 mg/dL (8.5-10.5) 01/15/22 18:52 Total Bilirubin 0.6 mg/dL (0.15-1.2) 01/15/22 18:52 AST 224 U/L (0-32) H 01/15/22 18:52 ALT 158 U/L (0-33) H 01/15/22 18:52 Alkaline Phosphatase 62 IU/L (35-105) 01/15/22 18:52 Ammonia 16 umol/L (11-51) 01/16/22 00:59 Troponin T Gen 5 ng/L 14 ng/L (0-10) H 01/15/22 18:52 Troponin T 120 Minute 13.53 ng/L (0-10) H 01/15/22 20:13 Delta Troponin T -0.47 ABS# (0-10) L 01/15/22 20:13 Total Protein 6.5 g/dL (6.6-8.7) L 01/15/22 18:52 Albumin 3.4 g/dL (3.5-5.2) L 01/15/22 18:52 Globulin 3.1 g/dL (1.3-4.6) 01/15/22 18:52 Lipase 19 U/L (13-60) 01/15/22 18:52 TSH 2.84 uIU/mL (0.27-4.20) 01/15/22 18:52 Free T4 1.19 ng/dL (0.82-1.77) 01/15/22 18:52 Urine Color Yellow (Yellow) 01/15/22 21:11 Urine Appearance Clear (CLEAR) 01/15/22 21:11 Urine pH 5 (5-7) 01/15/22 21:11 Ur Specific [place] 1.010 (1.005-1.030) 01/15/22 21:11 Urine Protein 1+ (Negative) H 01/15/22 21:11 Urine Glucose (UA) Norm (Normal) 01/15/22 21:11 Urine Ketones 1+ (Negative) H 01/15/22 21:11 Urine Blood 2+ (Negative) H 01/15/22 21:11 Urine Nitrate Negative (Negative) 01/15/22 21:11 Urine Bilirubin Neg (Negative) 01/15/22 21:11 Urine Urobilinogen 1 mg/dL (Negative) H 01/15/22 21:11 Ur Leukocyte Esterase 1+ (Negative) H 01/15/22 21:11 Urine RBC 0-4 /hpf (0-2) H 01/15/22 21:11 Urine WBC 5-10 /hpf (0-5) H 01/15/22 21:11 Ur Squamous Epith Cells 0-4 /hpf (0-5) H 01/15/22 21:11 Amorphous Sediment Not Reportable 01/15/22 21:11 Urine Bacteria Trace /hpf (NONE) 01/15/22 21:11 Urine Mucus 1+ /hpf 01/15/22 21:11 Salicylates < 0.3 mg/dL (3-10) L 01/15/22 18:52 Urine Opiates Screen Positive ng/mL (Negative) H 01/15/22 21:11 Acetaminophen < 5.0 ug/mL (10-30) L 01/15/22 18:52 Ur Barbiturates Screen Positive ng/mL (Negative) H 01/15/22 21:11 Ur Phencyclidine Scrn Negative ng/mL (Negative) 01/15/22 21:11 Ur Amphetamines Screen Negative ng/mL (Negative) 01/15/22 21:11 U Benzodiazepines Scrn Negative ng/mL (Negative) 01/15/22 21:11 Urine Cocaine Screen Negative ng/mL (Negative) 01/15/22 21:11 U Marijuana (THC) Screen Negative ng/mL (Negative) 01/15/22 21:11 Ethyl Alcohol < 10 mg/dL (0-10) 01/15/22 18:52 Coronavirus 229E (PCR) Cancelled 01/16/22 01:21 Influenza Type A Ag Negative (Negative) 01/16/22 01:21 Influenza Type B Ag Negative (Negative) 01/16/22 01:21 SARS-CoV-2 (PCR) Cancelled 01/16/22 01:21 Imaging Data Other Imaging: Radiologist's impression: [address] [address] [address] Scan Report Signed Patient: Nasrin Welsh Unit #: [id number] : 1950 Age/Sex: 71 / F ADM Date: 01/15/22 Loc: ER Room/Bed: Attending Dr: Ordering Provider/Ordering MD: Mojgan Martino MD Date of Service: 01/15/22 Procedure(s): CT head wo con* [id number] Accession Number(s): [id number] Report Number: [id number] PROCEDURE INFORMATION: Exam: CT Head Without Contrast Exam date and time: 01/15/2022 6:22 PM Age: 71 years old Clinical indication: Altered mental status/memory loss; Additional info: AMS TECHNIQUE: Imaging protocol: Computed tomography of the head without contrast. Radiation optimization: All CT scans at this facility use at least one of these dose optimization techniques: automated exposure control; mA and/or kV adjustment per patient size (includes targeted exams where dose is matched to clinical indication); or iterative reconstruction. COMPARISON: MR head wo con* [id number] 10/29/2020 3:12 PM RADIATION DOSE METRICS: Total DLP (mGy-cm): 816.22 FINDINGS: Brain: Mild diffuse white matter disease likely reflecting chronic microvascular ischemic changes. Cerebral ventricles: No ventriculomegaly. Paranasal sinuses: Visualized sinuses are unremarkable. No fluid levels. Mastoid air cells: Visualized mastoid air cells are well aerated. Bones/joints: Unremarkable. No acute fracture. Soft tissues: Unremarkable. CT/CT head wo con* [id number] IMPRESSION: Negative for intracranial hemorrhage or mass effect ? Dictated By: Tristan Rea MD Signed By: Tristan Rea MD Signed Date/Time: 01/15/22 183 DD/ 21 [address] [place] [address] XRay Report Signed Patient: Nasrin Welsh Unit #: [id number] : 1950 Age/Sex: 71 / F ADM Date: 01/15/22 Loc: ER Room/Bed: Attending Dr: Ordering Provider/Ordering MD: Mojgan Martino MD Date of Service: 01/15/22 Procedure(s): XR chest 1V portable [id number] Accession Number(s): [id number] Report Number: [id number] PROCEDURE INFORMATION: Exam: XR Chest Exam date and time: 01/15/2022 6:01 PM Age: 71 years old Clinical indication: Other: Suicidal ideations, AMS; Additional info: Eval for pna TECHNIQUE: Imaging protocol: XR of the chest. Views: 1 view. COMPARISON: CR XR chest 1V portable [id number] 10/28/2020 9:13 PM FINDINGS: Lungs: Left lower lobe atelectasis versus minimal infiltrate. Pleural spaces: Unremarkable. No pleural effusion. No pneumothorax. Heart/Mediastinum: Cardiomegaly and mild pulmonary vascular congestion. Bones/joints: Unremarkable. XR/XR chest 1V portable [id number] IMPRESSION: 1. Cardiomegaly and mild pulmonary vascular congestion. 2. Left lower lobe atelectasis versus minimal infiltrate. ? Dictated By: Tristan Rea MD Signed By: Tristan Rea MD Signed Date/Time: 01/15/221816 DD/ 180 Discharge Plan Discharge Patient Disposition: Admitted As Inpatient Admit Provider: Sara Haskins Clinical Impression: Altered mental status Condition: Stable Discharge Diet: Advance as tolerated Discharge Activity: Increase activity as tolerated Coding Level of Care Code ED Landcare Officer for Chg Fwd Exam Comprehensive
[2022-01-15] MEDS: morphine 4 mg/mL SDV 1 mL 2 MG IVP ×2 (17:56→20:28)
[2022-01-15] MEDS: metoclopramide 5 mg/mL SDV 2 mL IVP (17:57)
[2022-01-15] MEDS: sodium chloride 0.9% 500 ML IV (18:00)
[2022-01-15 18:03] LABS: Hematocrit 40.7 % (37.0-47.0); Hemoglobin 14.1 g/dL (11.5-15.3); Mean Corpuscular HGB Conc 34.6 g/dL (30.0-36.0); Mean Corpuscular Hemoglobin 28.9 pg (28.0-34.0); Mean Corpuscular Volume 83.4 fl (81-99); Mean Platelet Volume 12.1 fL (7.4-10.4); Platelet Count 75 10^3/cmm (130-400); Red Blood Count 4.88 10^6/uL (4.1-5.3); Red Cell Distribution Width 13.3 % (12.1-15.1); White Blood Count 4.4 10^3/uL (4.0-10.0)
--- NOTE | 2022-01-15 18:19 | CTR_ITS ---
PROCEDURE INFORMATION: Exam: CT Head Without Contrast Exam date and time: 01/15/2022 6:22 PM Age: 71 years old Clinical indication: Altered mental status/memory loss; Additional info: AMS TECHNIQUE: Imaging protocol: Computed tomography of the head without contrast. Radiation optimization: All CT scans at this facility use at least one of these dose optimization techniques: automated exposure control; mA and/or kV adjustment per patient size (includes targeted exams where dose is matched to clinical indication); or iterative reconstruction. COMPARISON: MR head wo con* [id number] 10/29/2020 3:12 PM RADIATION DOSE METRICS: Total DLP (mGy-cm): 816.22 FINDINGS: Brain: Mild diffuse white matter disease likely reflecting chronic microvascular ischemic changes. Cerebral ventricles: No ventriculomegaly. Paranasal sinuses: Visualized sinuses are unremarkable. No fluid levels. Mastoid air cells: Visualized mastoid air cells are well aerated. Bones/joints: Unremarkable. No acute fracture. Soft tissues: Unremarkable. CT/CT head wo con* [id number] IMPRESSION: Negative for intracranial hemorrhage or mass effect
[2022-01-15 18:41] LABS: Slide Review Slide Review Perform
[2022-01-15 18:42] LABS: Absolute Segmented Neutrophil 2.1 10/cmm (1.6-7.1); Band Neutrophils Absolute 1.2 10^3/cmm (0.0-1.2); Eosinophils 0 %; Monocytes Absolute 0.3 10^3/cmm (0.1-0.6); Segmented Neutrophils 47 %; Total Cells Counted 100 (0-100)
[2022-01-15 18:43] LABS: Blastocytes 0 % (0-0)
[2022-01-15 18:46] LABS: Absolute Neutrophil 3.3 10^3/cmm (1.4-6.5); Platelet Estimate Decreased (Normal)
[2022-01-15 18:47] LABS: Giant Platelets Trace
[2022-01-15 18:48] LABS: Lymphocytes 16 %; Lymphocytes Absolute 0.8 10^3/cmm (1.2-3.4)
--- NOTE | 2022-01-15 19:14 | PC.NURSE ---
190 Assumed pt care from Roland NEWTON
[2022-01-15 19:26] LABS: Troponin T (5th) Once 14 ng/L (0-10)
[2022-01-15 19:36] LABS: Alanine Aminotransferase 158 U/L (0-33); Albumin Level 3.4 g/dL (3.5-5.2); Alkaline Phosphatase 62 IU/L (35-105); Anion Gap 15.1 (5-19); Aspartate Amino Transferase 224 U/L (0-32); Blood Urea Nitrogen 15 mg/dL (8-23); Carbon Dioxide 27 mmol/L (22-29); Chloride 90 mmol/L (98-107); Globulin 3.1 g/dL (1.3-4.6); Glucose 154 mg/dL (65-115); Lipase 19 U/L (13-60); Osmolality Calculated 272 mOsm/kg (285-295); Potassium 3.1 mmol/L (3.5-5.1); Sodium 129 mmol/L (136-145); Thyroid Stimulating Hormone 2.84 uIU/mL (0.27-4.20); Total Bilirubin 0.6 mg/dL (0.15-1.2); Total Protein 6.5 g/dL (6.6-8.7)
[2022-01-15 19:43] LABS: Acetaminophen < 5.0 ug/mL (10-30); Salicylate < 0.3 mg/dL (3-10)
[2022-01-15] MEDS: acetaminophen 500 mg Tablet PO (20:26)
--- NOTE | 2022-01-15 20:38 | PC.NURSE ---
Pt Sp02 dropped after MS 2mg given to mid upper 80's. Placed on 2L NC O2
[2022-01-15 20:40] LABS: Free T4 Free Thyroxine 1.19 ng/dL (0.82-1.77)
[2022-01-15 20:42] LABS: Troponin 5 2HR 13.53 ng/L (0-10)
[2022-01-15 21:00] LABS: Troponin 5 2HR Delta -0.47 ABS# (0-10)
[2022-01-15 21:15] LABS: Glucose Urine UA Norm (Normal); Ketones Urine 1+ (Negative); Protein Urine 1+ (Negative); Urine Appearance Clear (CLEAR); Urine Color Yellow (Yellow); pH Urine 5 (5-7)
[2022-01-15 21:16] LABS: Add Urine Microscopic? YES; Bilirubin Urine Neg (Negative); Blood Urine 2+ (Negative); Leukocyte Esterase Urine 1+ (Negative); Nitrate Urine Negative (Negative); Urobilinogen Urine 1 mg/dL (Negative)
[2022-01-15 21:21] LABS: Add Urine Culture? Yes; Bacteria Urine TRACE /hpf; Mucus Urine 1+ /hpf; RBC Urine 0-4 /hpf (0-2); Squamous Epithelial Cell Urine 0-4 /hpf (0-5)
[2022-01-15 21:24] LABS: Amphetamines Screen Urine Negative (Negative); Barbiturates Screen Urine Positive (Negative); Benzodiazepines Screen Urine Negative (Negative); Cocaine Screen Urine Negative (Negative); Opiate Screen Urine Positive (Negative); PCP Screen Urine Negative (Negative); THC Screen Urine Negative (Negative)
[2022-01-15] MEDS: magnesium sulfate premix 2 GM/50 ML PIGGYBACK IV (21:33)
--- NOTE | 2022-01-15 21:35 | ECG_ITS ---
[facility] Test Date: 2022-01-15 Pat Name: Nasrin Welsh Department: Room: Gender: Female Entry Writer: : 1950 Requested By: Mojgan Martino Order Number: [id number] Nakita MD: Andrew Villalta M.D. Measurements Intervals Raymond Rate: 96 P: 80 TX: 142 QRS: -30 QRSD: 93 T: 171 QT: 380 QTc: 481 Interpretive Statements ATRIAL FIBRILLATION BORDERLINE LEFT AXIS DEVIATION [QRS AXIS < -20] INCOMPLETE RIGHT BUNDLE BRANCH BLOCK [90+ ms QRS DURATION, TERMINAL R IN V1/V2, 40+ ms S IN I/aVL/V4/V5/V6] ST DEVIATION AND MODERATE T-WAVE ABNORMALITY, CONSIDER ANTEROLATERAL ISCHEMIA [-0.1+ mV T-WAVE IN V3-V6] ST DEVIATION AND MODERATE T-WAVE ABNORMALITY, CONSIDER INFERIOR ISCHEMIA [-0.1+ mV T-WAVE IN II/aVF] Compared to ECG 01/15/2022 18:34:25 Ventricular premature complex(es) now present Incomplete right bundle-branch block now present Sinus tachycardia no longer present T-wave abnormality still present Possible ischemia still present Electronically Signed On 01-16-2022 17:03:44 CDT by Andrew Villalta M.D. [id number]
[2022-01-16] VITALS (10 sets, daily range): BP systolic 109–139; BP diastolic 63–81; PULSE 71–107; RESP 16–21; TEMP 36.3–37.4; O2SAT 91–97; BMI 26.9
[2022-01-16 00:52] LABS: Alcohol Level < 10 mg/dL (0-10)
[2022-01-16 01:24] LABS: Ammonia 16 umol/L (11-51)
--- NOTE | 2022-01-16 01:42 | MR_ITS ---
WS: [id number] MRI HEAD WITHOUT CONTRAST TECHNIQUE: Sagittal T1, T2 axial, T2 axial FLAIR, axial and coronal T1 images, axial susceptibility w eighted imaging, axial diffusion weighted images, and coronal T2 images were obtained. CLINICAL INFORMATION: ALTERED MENTAL STATUS COMPARISON: MRI October 29, 2020 FINDINGS: No evidence of restricted diffusion to suggest acute ischemia. Ventricular system and basal cisterns are patent. Moderate small vessel changes with moderate parenchymal volume loss. Previous areas of is chemia demonstrate improved/resolved edema today. No significant mass effect or midline shift. Gliosi s in the LEFT frontal lobe and insula along the LEFT frontal previously described infarct. Normal posterior fossa. Normal vascular flow voids at the skull base. No extra axial fluid collection s. No evidence of mass or mass effect. Mild mucosal thickening in the paranasal sinuses. Mastoid air cells well aerated. Visualized orbits appear normal. No hemosiderin on the susceptibility weighted images. Normal optic chiasm and pituitary infundibulum. Mild symmetric atrophy temporal lobes and hippocampal formations. MR/MR head wo con* [id number] IMPRESSION: 1. No evidence of restricted diffusion to suggest acute ischemia. 2. Moderate small vessel changes with moderate parenchymal volume loss. 3. Chronic gliosis in the LEFT frontal lobe and insula along the area of prior infarct. No significant edema or mass effect today. 4. Mild symmetric atrophy temporal lobes and hippocampal formations. 5. No hemosiderin on susceptibly weighted images. 6. No other significant changes from previous.
--- NOTE | 2022-01-16 01:49 | P.HP_ITS ---
Providers/Chief Complaint Admitting Physician: Sara Haskins MD Primary Care Provider: Jerry Flynn DO Chief Complaint: SUICIDAL IDEATIONS History of Present Illness Nasrin Welsh is a 71 year old female with h/o atrial fib, embolic CVA in 2020 and HTN as well as hyperlipidemia who presented to the ED with depression, as well as flu like symptoms. Patient apparently returned from [place] and has had a few days of myalgias and headaches. She has had some consusion per friend/family me mbers and they are concerned she is not able to take care of herself. She denies SI. Psych was consulted by ED physician and did not feel psych hospitalization was indicated. Patient was initially discharged home with outpatient F/U, however as she is unable to take care of herself, she was placed in the hospital overnight. Patient has c/o headache. Denies weakness, numbness. CT head unremarkable. Denies syncope, falls, trauma. Labs reveal normal WBC, platelets low at 75,000 and AST 224 and ALT of 158. Sodium level 129 and potassium 3.1. Urine tox screen positive for opiates and barbituates. Review of Systems General: Reports: 10 or more systems reviewed and unremarkable except in HPI and below Const: Reports: chills, body aches, fatigue and malaise; Denies: fever(s) Eyes: Denies: change in vision or blurry vision ENMT: Denies: throat pain or hoarseness Card: Denies: chest pain, palpitations, edema or syncope Resp: Denies: dyspnea or wheezing GI: Denies: abdominal pain, nausea, vomiting, diarrhea or constipation : Denies: flank pain or urinary frequency Musc: Denies: neck pain, joint swelling or joint redness Skin/Breast: Denies: rash, pruritus or erythema Neuro: Reports: headache(s) and difficulty communicating thoughts; Denies: numbness in extremities, weakness in extremities, lack of coordination, dizziness or seizure-like activity Psych: Reports: depression; Denies: paranoia or suicidal ideation Endo: Reports: tired all the time; Denies: polyuria or polydipsia Newton/Lymph: Denies: easy bruising or easy bleeding Medications/Allergies Home Medications Medication Instructions Recorded Confirmed Last Taken Type levothyroxine 75 mcg tablet 75 mcg PO DAILY@08 10/29/20 12/23/20 12/23/20 History lisinopril 40 mg tablet 20 mg PO DAILY@08 #0 tab 10/31/20 12/23/20 12/23/20 Rx amoxicillin 500 mg-potassium 1 tab PO TID #21 tab 12/23/20 Unknown Rx clavulanate 125 mg tablet (Augmentin) apixaban 5 mg tablet (Eliquis) 5 mg PO BID@,12/23/20 12/23/20 12/23/20 History aspirin 81 mg chewable tablet 81 mg PO DAILY@12/23/20 12/23/20 12/23/20 History hydrochlorothiazide 25 mg tablet 25 mg PO DAILY@08 12/23/20 12/23/20 12/23/20 History metoprolol tartrate 50 mg tablet 50 mg PO BID@,12/23/20 12/23/20 12/23/20 History acetaminophen 500 mg tablet 500 mg PO Q6H PRN 5 Days #20 tab 01/15/22 Unknown Rx magnesium oxide 400 mg PO DAILY PRN 10 Days #10 cap 01/15/22 Unknown Rx Allergies Allergy/AdvReac Type Severity Reaction Status Date / Time Sulfa (Sulfonamide Allergy Unknown ALGY-Bliste Verified 12/23/20 10:10 Antibiotics) r PFSH Acute PFSH: Medical History Hypertension Hypothyroidism Plantar porokeratosis, acquired Family History Other Cerebral hemorrhage Social History Smoking and tobacco status: never smoked Alcohol intake: current Alcohol intake frequency: few times a month Household members: none Current occupational status: other 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 Vitals/I&O/Wt Last Vital Signs Temp 97.6 F 01/16/22 01:24 Pulse 76 01/16/22 01:24 Resp 16 01/16/22 01:24 BP 109/72 01/16/22 01:24 Pulse Ox 96 01/16/22 01:24 01/15/22 01/15/22 01/16/22 14:59 22:59 06:59 Intake Total 550 / 550 Balance 550 / 550 Weight last 48 hrs Weight 80.331 kg Physical Exam Const: GENERAL APPEARANCE: comfortable; not in distress HENMT: HEAD & SCALP: normocephalic and atraumatic Eye: PUPIL: Yes Equal, round and reactive pupils present Neck/C-Spine: GENERAL: Yes trachea midline and No Meningeal signs present Chest: CHEST: Yes Symmetrical chest wall rise Cardio: RATE: regular rate HEART SOUNDS: S1 normal heart sound present, S2 normal heart sound present and no murmurs PERIPHERAL PULSES: Peripheral pulses 2+ throughout GI: PALPATION: Yes Soft to palpation, No Tenderness to palpation present (GI), No Guarding due to palpation present (GI), No Hepatomegaly present and No Ascites present : BLADDER/KIDNEY EXAM: Yes no CVA tenderness Extremity: GENERAL: No calf tenderness, No clubbing and No edema Neuro: COMMON NORMALS: moves all extremities, no focal motor deficits and no sensory deficits noted SENSORIUM/ORIENTATION: Yes oriented to person and Yes fluctuating sensorium MENINGEAL SIGNS: No no meningeal signs SPEECH: speech normal Psych: APPEARANCE: Yes grossly normal ATTITUDE: Yes Withdrawn affect present MOOD & AFFECT: Yes Blunted affect present Skin: GENERAL SKIN EXAM: no rashes or lesions noted and turgor normal Data : 01/15/22 17:55 01/15/22 18:52 A&P Assessment and plan (1) Altered mental status: Patient presents with confusion, AMS. Denies SI. Per family and friends, she is not like herself and will not be able to take care of herself at home. Patient has mild UTI which may be exacerbating her symptoms of confusion, however, needs further revaluation. UDS positive for opiates and barbituates. Alcohol level pending. Transaminitis noted- serum ammonia not elevated. Has recent h/o travel to [place]- has had some flu like symptoms- will add COVID and flu test CT head unremarkable She had an embolic CVA in 2020 when she had similar presentation- although she has no focal neurological signs- MRI brain ordered. Telemetry Denies SI. Monitor closely Status: Acute (2) Acute cystitis: Mild UTI with WBC 5-10 and leukocyte esterace positive- rocephin started. Urine culture sent Status: Acute (3) Atrial fibrillation: Telemetry Resume metoprolol Eliquis listed on her med list, however, she denies taking anticoagulation. HR rate controlled. CXR with cardiomegaly and some signs of congestion, fluid overload- last echo reveals EF of 40 percent- may repeat if clinically indicated. Currently patient not in decompensated heart failure Status: Acute (4) Hyponatremia: Mild hyponatremia noted- will begin gentle hydration with NS and replace potassium Monitor closely Status: Acute (5) Hypokalemia: as above Status: Acute (6) Thrombocytopenia: New onset - platelet count 75,000 No signs of bleeding Monitor Status: Acute (7) Elevated liver enzymes: AST 224, ALT 158. Unclear etiology Denies significant alcohol use. Hepatitis panel ordered as well as tick panel Serum ammonia not elevated Status: Acute (8) Hypertension: Resume metoprolol Hold lisinopril Status: Acute Attestations Medical Necessity Statement*: Placed in observation for additional assessment of altered mental status, electrolyte abnormalities, and elevated LFT Coding Level of Care Code Acute Decatizer for [facility] Fwd Exam Comprehensive Medical Decision Making Moderate Complexity Diagnoses Altered mental status R41.82 Acute cystitis N30.00 Atrial fibrillation I48.91 Hyponatremia E87.1 Hypokalemia E87.6 Thrombocytopenia D69.6 Elevated liver enzymes R74.8 Hypertension I10
[2022-01-16 02:10] LABS: Influenza A by IFA Negative (Negative)
[2022-01-16 02:11] LABS: Influenza B by IFA Negative (Negative)
[2022-01-16] MEDS: sodium chlor 0.9% + KCl 20 mEq 20 MEQ/1,000 ML BAG 75 MEQ IV (02:44)
[2022-01-16] MEDS: cefTRIAXone 1,000 MG in sodium chloride 0.9% (plus) 50 ML 100 MG IV (02:46)
[2022-01-16 04:16] LABS: Adenovirus Not Detected (NOT DETECT); Chlamydia Pneumoniae Not Detected (NOT DETECT); Coronavirus 229E,HKU1,NL63,OC4 Not Detected (NOT DETECT); Human Metapneumovirus Not Detected (NOT DETECT); Human Rhinovirus/Enterovirus Not Detected (NOT DETECT); Influenza A Not Detected (NOT DETECT); Influenza A H1 Not Detected (NOT DETECT); Influenza A H1-2009 Not Detected (NOT DETECT); Influenza A H3 Not Detected (NOT DETECT); Influenza B Not Detected (NOT DETECT); Mycoplasma Pneumoniae Not Detected (NOT DETECT); Parainfluenza Virus Type 1 Not Detected (NOT DETECT); Parainfluenza Virus Type 2 Not Detected (NOT DETECT); Parainfluenza Virus Type 3 Not Detected (NOT DETECT); Parainfluenza Virus Type 4 Not Detected (NOT DETECT); Respiratory Syncytial Virus A Not Detected (NOT DETECT); Respiratory Syncytial Virus B Not Detected (NOT DETECT); SARS-COV-2 Not Detected (NOT DETECT)
[2022-01-16 04:17] LABS: Hepatitis B Core AB, Total Non-Reactive (Nonreactive); Hepatitis B Surface AB 14.7 (11.5-1000); Hepatitis B Surface Antigen Non-Reactive (Nonreactive); Hepatitis C Virus Antibody Reactive (Nonreactive)
[2022-01-16] MEDS: levothyroxine 75 mcg Tablet PO (06:06)
--- NOTE | 2022-01-16 08:42 | USCV_ITS ---
Elliot Welshne Age: 71 Gender: F : 1950 Exam Date: 01/16/2022 10:11 Ordering Phys: Jeovany Cain MD Technologist: Chilango Rivera [place]am Location[place] [facility] [place] Indication: ? rv mass BP: 132 / 82 HR: 88 Rhythm: Sinus Technical Quality: Adequate MEASUREMENTS (Male / Female) Normal Values 2D ECHO LV Diastolic Diameter PLAX 4.4 cm 4.2 - 5.9 / 3.9 - 5.3 cm LV Systolic Diameter PLAX 2.5 cm IVS Diastolic Thickness 0.8 cm 0.6 - 1.0 / 0.6 - 0.9 cm IVS Systolic Thickness 1.4 cm LVPW Diastolic Thickness 1.0 cm 0.6 - 1.0 / 0.6 - 0.9 cm LVPW Systolic Thickness 1.3 cm LVOT Diameter 2.0 cm LV Ejection Fraction 2D Teich 75.1 % LV Ejection Fraction MOD 2C 54.8 % LV Ejection Fraction 2C AL 55.5 % LA Diameter 4.2 cm Aorta at Sinotubular Diameter 2.2 cm M-MODE Aortic Annulus Diameter 3.4 cm LA Ao Ratio MM 1.4 DOPPLER AV Peak Velocity 133.0 cm/s LVOT Peak Velocity 90.0 cm/s AV Area Cont Eq vti 2.0 cm squared AV Area Cont Eq pk 2.2 cm squared MV Area PHT 5.0 cm squared Mitral E to A Ratio 1.4 MV E' Velocity 49.0 cm/s Mitral E to MV E' Ratio 6.6 Mitral E to LV E' Lateral Ratio 5.5 Mitral E to LV E' Septal Ratio 8.2 TR Peak Velocity 270.5 cm/s TR Peak Gradient 29.3 mmHg TV Peak E Velocity 108.0 cm/s Right Atrial Pressure 3.0 mmHg Pulmonary Artery Systolic Pressu 32.3 mmHg PV Peak Velocity 103.0 cm/s FINDINGS Left Ventricle Normal left ventricular size, systolic function and wall thickness, with no regional wall motion abnormalities. Left ventricular ejection fraction is estimated at 55 %. Rhythm precludes evaluation of diastolic function. Right Ventricle Normal right ventricular size and systolic function. Small layered echodensity along RV free wall still noticeable in some views. Right ventricular systolic pressure 43 mmHg. Right Atrium Moderately increased right atrial size. Left Atrium Moderately increased left atrial size. Mitral Valve Moderately thickened mitral valve. No mitral valve stenosis. Mild mitral valve regurgitation. Aortic Valve Aortic valve not well visualized. No aortic valve stenosis. No aortic valve regurgitation. Tricuspid Valve Structurally normal tricuspid valve. Moderate tricuspid valve regurgitation. Pulmonic Valve Pulmonic valve not well visualized. Pericardium No pericardial effusion. Aorta Normal-sized aortic root. CONCLUSIONS 1. Normal left ventricular size, systolic function and wall thickness, with no regional wall motion abnormalities. Left ventricular ejection fraction is estimated at 55%. 2. Small layered immobile echodensity along RV free wall still noticeable in some views. This appears unchanged when compared to prior study. This may represent layered thrombus versus degenerated endocardial structures (as reported previously). 3. Moderate biatrial enlargement. 4. Moderate tricuspid valve regurgitation. 5. When compared to previous study report dated 10/30/2020, left ventricular systolic function may have improved. Yasmeen Melgar MD (Electronically Signed) Final Date: 16 January 2022 13:14 S
[2022-01-16 09:00] LABS: Basophils % 0.4 %; Hematocrit 40.7 % (37.0-47.0); Hemoglobin 13.8 g/dL (11.5-15.3); Lymphocytes # 1.7 10^3/uL (0.8-4.8); Lymphocytes % 35.1 %; Mean Corpuscular HGB Conc 33.9 g/dL (30.0-36.0); Mean Corpuscular Hemoglobin 28.5 pg (28.0-34.0); Mean Corpuscular Volume 83.9 fl (81-99); Mean Platelet Volume 11.7 fL (7.4-10.4); Monocytes # 0.2 10^3/uL (0.2-0.9); Monocytes % 4.2 %; Neutrophils # 2.82 10^3/uL (1.8-7.7); Neutrophils % 59.7 %; Nucleated Red Blood Cells % 0 %; Platelet Count 87 10^3/cmm (130-400); Red Blood Count 4.85 10^6/uL (4.1-5.3); Red Cell Distribution Width 13.5 % (12.1-15.1); White Blood Count 4.7 10^3/uL (4.0-10.0)
[2022-01-16] MEDS: metoprolol tartrate 50 mg Tablet PO (09:26)
[2022-01-16 09:27] LABS: Alanine Aminotransferase 157 U/L (0-33); Alkaline Phosphatase 62 IU/L (35-105); Anion Gap 14.8 (5-19); Aspartate Amino Transferase 216 U/L (0-32); Blood Urea Nitrogen 13 mg/dL (8-23); Calcium 8.6 mg/dL (8.5-10.5); Carbon Dioxide 26 mmol/L (22-29); Chloride 93 mmol/L (98-107); Globulin 3.3 g/dL (1.3-4.6); Glucose 129 mg/dL (65-115); Osmolality Calculated 274 mOsm/kg (285-295); Sodium 131 mmol/L (136-145); Total Bilirubin 0.5 mg/dL (0.15-1.2); Total Protein 6.3 g/dL (6.6-8.7)
[2022-01-16 09:31] LABS: NT Pro B Type Natriuretic Pept 2501 pg/mL (0-125)
[2022-01-16 09:48] LABS: Potassium 2.8 mmol/L (3.5-5.1)
[2022-01-16 10:16] LABS: Slide Review Slide Review Perform
[2022-01-16] MEDS: lidocaine 1% 5 ML in potassium chloride premix 100 ML 25 ML IV (10:38)
--- NOTE | 2022-01-16 12:45 | P.DS_ITS ---
Discharge Providers Date of Admission: 01/16/22 01:24 Date of Discharge: January 16, 2022 Attending Provider at Admission: Sara Haskins MD Attending Provider at Discharge: Jeovany Cain MD Primary Care Provider: Jerry Flynn DO Diagnoses at Discharge Discharge Diagnosis (1) Altered mental status: Status: Acute (2) Acute cystitis: Status: Acute (3) Atrial fibrillation: Status: Acute (4) Hyponatremia: Status: Acute (5) Hypokalemia: Status: Acute (6) Thrombocytopenia: Status: Acute (7) Elevated liver enzymes: Status: Acute (8) Hypertension: Status: Acute Reason for Visit Reason for Visit: SUICIDAL IDEATIONS Hospital Course Hospital Course HPI: Sara Haskins MD Nasrin Welsh is a 71 year old female with h/o atrial fib, status post ablation, status post watchman device placement, as she was not tolerating anticoagulation in the past, embolic CVA in 2020 and HTN as well as hyperlipidemia who presented to the ED with depression, as well as flu like symptoms. Patient apparently returned from [place] and has had a few days of myalgias and headaches. She has had some consusion per friend/family members and they are concerned she is not able to take care of herself. She denies SI. Psych was consulted by ED physician and did not feel psych hospitalization was indicated. Patient was initially discharged home with outpatient F/U, however as she is unable to take care of herself, she was placed in the hospital overnight. Patient has c/o headache. Denies weakness, numbness. CT head unremarkable. Denies syncope, falls, trauma. Labs reveal normal WBC, platelets low at 75,000 and AST 224 and ALT of 158. Sodium level 129 and potassium 3.1. Urine tox screen positive for opiates and barbituates. Hospital course: She was admitted for the management of acute metabolic encephalopathy: Multifactorial likely secondary to UTI hyponatremia hypokalemia. CT head without contrast: Failed to show any acute intracranial pathology, MRI head without contrast: No acute pathology, she was kept on IV hydration, for hypovolemic hyponatremia, potassium correction was undertaken, she was on IV antibiotics for her UTI, she was discharged on p.o. levofloxacin. She was also managed for: Thrombocytopenia: Had no bleeding episode no petechiae no purpura, currently etiology is unclear, she will follow with repeat CBC in 1 week with the primary care physician, to evaluate for platelet count, she also had abnormal liver enzymes: Has prior history of hep C, patient reports it has been treated, hep C RNA PCR pending: She denies any abdominal pain nausea vomiting was tolerating diet, AST ALT was improving, she was also taking Tylenol at home for recent headache, possibly contributing to abnormal AST, ALT, she has been asked to follow-up with repeat CMP in 1 week with the primary care physician.During this hospital stay repeat 2D echo was done: For further evaluation of: Prior Reported: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 Current 2D echo: Normal LV size and systolic function, LVEF 55%, Small layered immobile echodensity along RV free wall still noticeable in some views.?This appears unchanged when compared?to prior study.? This may represent layered thrombus versus ?degenerated endocardial structures, according to the patient she had a recent BRYCE done at [facility] where watchman device was placed, and she was told that the BRYCE looks fine. She has been advised to continue to follow with her primary care physician and continue to follow with her cardiology as an outpatient. She is in search of a new bioinformaticist. Overall patient responded well to above medical management and is being discharged in stable condition to home, currently she denies any suicidal or homicidal ideation. Physical Exam Const: COMMON NORMALS: patient oriented x3 HENMT: COMMON NORMALS: normocephalic and atraumatic HEAD & SCALP: normocephalic and atraumatic Chest: CHEST: Yes Symmetrical chest wall rise Resp: COMMON NORMALS: normal respiratory effort, No retractions, No use of accessory muscles and clear to auscultation bilaterally EFFORT & INSPECTION: Yes symmetric chest movement AUSCULTATION: clear to auscultation bilaterally Cardio: COMMON NORMALS: regular rate, regular rhythm, S1 normal heart sound present, S2 normal heart sound present, No gallops present (Cardio), No murmurs present (Cardio), No rub (Cardio) and Peripheral pulses 2+ throughout RATE: regular rate RHYTHM: regular rhythm HEART SOUNDS: S1 normal heart sound present and S2 normal heart sound present PERIPHERAL PULSES: Peripheral pulses 2+ throughout GI: COMMON NORMALS: Normal to inspection, nondistended, normoactive bowel sounds present, Soft to palpation, non-tender, No hepatosplenomegaly present and no masses AUSCULTATION: Yes normoactive bowel sounds PALPATION: Yes Soft to palpation and Yes No hepatosplenomegaly present RECTAL EXAM: deferred Extremity: COMMON NORMALS: no clubbing, cyanosis or edema and no pedal edema Neuro: COMMON NORMALS: patient oriented x3 Discharge Data Studies Completed and Pending Completed Studies During Hospitalization Category Date Time Status CT head wo con* [id number] Urgent Cat Scan 01/15/22 18:19 Completed XR chest 1V portable [id number] Urgent Exams 01/15/22 17:29 Completed MR head wo con* [id number] Routine MRI 01/16/22 01:42 Completed Pending at discharge Category Date Time Status CBC Auto Diff [Complete Blood Count w/Auto] AM LABS Lab 01/17/22 04:00 Ordered CBC Auto Diff [Complete Blood Count w/Auto] AM LABS Lab 01/18/22 04:00 Ordered CBC Auto Diff [Complete Blood Count w/Auto] AM LABS Lab 01/19/22 04:00 Ordered CMP [Comprehensive Metabolic Panel] AM LABS Lab 01/17/22 04:00 Ordered CMP [Comprehensive Metabolic Panel] AM LABS Lab 01/18/22 04:00 Ordered CMP [Comprehensive Metabolic Panel] AM LABS Lab 01/19/22 04:00 Ordered Hepatitis C RNA Viral Load Qnt Routine Lab 01/16/22 00:59 Received Miscellaneous Test Routine Lab 01/16/22 02:20 Received Tick Panel Routine Lab 01/16/22 02:20 Received Urine Culture Stat Lab 01/15/22 21:11 Received CV. echo complete* [id number] Routine Ultrasound 01/16/22 08:42 Taken Radiology Impressions Chest X-Ray 01/15/22 17:29 IMPRESSION: 1. Cardiomegaly and mild pulmonary vascular congestion. 2. Left lower lobe atelectasis versus minimal infiltrate. Head CT 01/15/22 18:19 IMPRESSION: Negative for intracranial hemorrhage or mass effect Head MRI 01/16/22 01:42 IMPRESSION: 1. No evidence of restricted diffusion to suggest acute ischemia. 2. Moderate small vessel changes with moderate parenchymal volume loss. 3. Chronic gliosis in the LEFT frontal lobe and insula along the area of prior infarct. No significant edema or mass effect today. 4. Mild symmetric atrophy temporal lobes and hippocampal formations. 5. No hemosiderin on susceptibly weighted images. 6. No other significant changes from previous. Laboratory Results WBC 4.7 10^3/uL (4.0-10.0) 01/16/22 08:48 WBC Cancelled 01/16/22 08:48 Corrected WBC Cancelled 01/16/22 08:48 RBC 4.85 10^6/uL (4.1-5.3) 01/16/22 08:48 RBC Cancelled 01/16/22 08:48 Hgb 13.8 g/dL (11.5-15.3) 01/16/22 08:48 Hgb Cancelled 01/16/22 08:48 Hct 40.7 % (37.0-47.0) 01/16/22 08:48 Hct Cancelled 01/16/22 08:48 MCV 83.9 fl (81-99) 01/16/22 08:48 MCV Cancelled 01/16/22 08:48 MCH 28.5 pg (28.0-34.0) 01/16/22 08:48 MCH Cancelled 01/16/22 08:48 MCHC 33.9 g/dL (30.0-36.0) 01/16/22 08:48 MCHC Cancelled 01/16/22 08:48 RDW 13.5 % (12.1-15.1) 01/16/22 08:48 RDW Cancelled 01/16/22 08:48 Plt Count 87 10^3/cmm (130-400) L 01/16/22 08:48 Plt Count Cancelled 01/16/22 08:48 MPV 11.7 fL (7.4-10.4) H 01/16/22 08:48 MPV Cancelled 01/16/22 08:48 Gran % Cancelled 01/16/22 08:48 Neut % (Auto) 59.7 % 01/16/22 08:48 Neut % (Auto) Cancelled 01/16/22 08:48 Lymph % (Auto) 35.1 % 01/16/22 08:48 Lymph % (Auto) Cancelled 01/16/22 08:48 [place] % (Auto) 4.2 % 01/16/22 08:48 [place] % (Auto) Cancelled 01/16/22 08:48 Eos % (Auto) 0.0 % 01/16/22 08:48 Eos % (Auto) Cancelled 01/16/22 08:48 Baso % (Auto) 0.4 % 01/16/22 08:48 Baso % (Auto) Cancelled 01/16/22 08:48 Neut # (Auto) 2.82 10^3/uL (1.8-7.7) 01/16/22 08:48 Neut # (Auto) Cancelled 01/16/22 08:48 Lymph # (Auto) 1.7 10^3/uL (0.8-4.8) 01/16/22 08:48 Lymph # (Auto) Cancelled 01/16/22 08:48 [place] # (Auto) 0.2 10^3/uL (0.2-0.9) 01/16/22 08:48 [place] # (Auto) Cancelled 01/16/22 08:48 Eos # (Auto) 0.0 10^3/uL (0.0-0.8) 01/16/22 08:48 Eos # (Auto) Cancelled 01/16/22 08:48 Baso # (Auto) 0.0 10^3/uL (0.0-0.1) 01/16/22 08:48 Baso # (Auto) Cancelled 01/16/22 08:48 Absolute Gran (auto) Cancelled 01/16/22 08:48 Nucleated RBC % (auto) 0 % 01/16/22 08:48 Nucleated RBC % (auto) Cancelled 01/16/22 08:48 Total Counted 100 (0-100) 01/15/22 17:55 Atypical Lymphs % 3.0 % (0-5) 01/15/22 17:55 Absolute Neutrophils 3.3 10^3/cmm (1.4-6.5) 01/15/22 17:55 Segmented Neutrophils 47 % 01/15/22 17:55 Abs Segm Neuts (Man) 2.1 10/cmm (1.6-7.1) 01/15/22 17:55 Band Neutrophils 27.0 % 01/15/22 17:55 Abs Band Neuts (Man) 1.2 10^3/cmm (0.0-1.2) 01/15/22 17:55 Absolute Lymphocytes 0.8 10^3/cmm (1.2-3.4) L 01/15/22 17:55 Lymphocytes (Manual) 16 % 01/15/22 17:55 Monocytes (Manual) 6.0 % 01/15/22 17:55 Absolute Monocytes 0.3 10^3/cmm (0.1-0.6) 01/15/22 17:55 Eosinophils (Manual) 0 % 01/15/22 17:55 Absolute Eosinophils 0.0 10^3/cmm (0.0-0.7) 01/15/22 17:55 Basophils (Manual) 0.0 % 01/15/22 17: Absolute Basophils 0.0 10^3/cmm (0.0-0.2) 01/15/22 17:55 Metamyelocytes 1.0 % 01/15/22 17: Myelocytes 0.0 % 01/15/22 17: Promyelocytes 0.0 % 01/15/22 17:55 Nucleated RBCs 0.0 /100WBC (0-1) 01/15/22 17:55 Nucleated RBCs # 0.0 /100WBC 01/16/22 08:48 Nucleated RBCs # Cancelled 01/16/22 08:48 Blast Cells 0 % (0-0) 01/15/22 17:55 Platelet Estimate Decreased (Normal) L 01/15/22 17:55 Giant Platelets Trace 01/15/22 17:55 Sodium 131 mmol/L (136-145) L 01/16/22 08:48 Potassium 2.8 mmol/L (3.5-5.1) L* 01/16/22 08:48 Chloride 93 mmol/L (98-107) L 01/16/22 08:48 Carbon Dioxide 26 mmol/L (22-29) 01/16/22 08:48 Anion Gap 14.8 (5-19) 01/16/22 08:48 BUN 13 mg/dL (8-23) 01/16/22 08:48 Creatinine 0.6 mg/dL (0.5-0.9) 01/16/22 08:48 GFR Calculation Not Reportable 01/16/22 08:48 Glucose 129 mg/dL (65-115) H 01/16/22 08:48 Calculated Osmolality 274 mOsm/kg (285-295) L 01/16/22 08:48 Calcium 8.6 mg/dL (8.5-10.5) 01/16/22 08:48 Total Bilirubin 0.5 mg/dL (0.15-1.2) 01/16/22 08:48 AST 216 U/L (0-32) H 01/16/22 08:48 ALT 157 U/L (0-33) H 01/16/22 08:48 Alkaline Phosphatase 62 IU/L (35-105) 01/16/22 08:48 Ammonia 16 umol/L (11-51) 01/16/22 00:59 Troponin T Gen 5 ng/L 14 ng/L (0-10) H 01/15/22 18:52 Troponin T 120 Minute 13.53 ng/L (0-10) H 01/15/22 20:13 Delta Troponin T -0.47 ABS# (0-10) L 01/15/22 20:13 NT-Pro-B Natriuret Pep 2501 pg/mL (0-125) H 01/16/22 08:48 Total Protein 6.3 g/dL (6.6-8.7) L 01/16/22 08:48 Albumin 3.0 g/dL (3.5-5.2) L 01/16/22 08:48 Globulin 3.3 g/dL (1.3-4.6) 01/16/22 08:48 Lipase 19 U/L (13-60) 01/15/22 18:52 TSH 2.84 uIU/mL (0.27-4.20) 01/15/22 18:52 Free T4 1.19 ng/dL (0.82-1.77) 01/15/22 18:52 Urine Color Yellow (Yellow) 01/15/22 21:11 Urine Appearance Clear (CLEAR) 01/15/22 21:11 Urine pH 5 (5-7) 01/15/22 21:11 Ur Specific [place] 1.010 (1.005-1.030) 01/15/22 21:11 Urine Protein 1+ (Negative) H 01/15/22 21:11 Urine Glucose (UA) Norm (Normal) 01/15/22 21:11 Urine Ketones 1+ (Negative) H 01/15/22 21:11 Urine Blood 2+ (Negative) H 01/15/22 21:11 Urine Nitrate Negative (Negative) 01/15/22 21:11 Urine Bilirubin Neg (Negative) 01/15/22 21:11 Urine Urobilinogen 1 mg/dL (Negative) H 01/15/22 21:11 Ur Leukocyte Esterase 1+ (Negative) H 01/15/22 21:11 Urine RBC 0-4 /hpf (0-2) H 01/15/22 21:11 Urine WBC 5-10 /hpf (0-5) H 01/15/22 21:11 Ur Squamous Epith Cells 0-4 /hpf (0-5) H 01/15/22 21:11 Amorphous Sediment Not Reportable 01/15/22 21:11 Urine Bacteria Trace /hpf (NONE) 01/15/22 21:11 Urine Mucus 1+ /hpf 01/15/22 21:11 Salicylates < 0.3 mg/dL (3-10) L 01/15/22 18:52 Urine Opiates Screen Positive ng/mL (Negative) H 01/15/22 21:11 Acetaminophen < 5.0 ug/mL (10-30) L 01/15/22 18:52 Ur Barbiturates Screen Positive ng/mL (Negative) H 01/15/22 21:11 Ur Phencyclidine Scrn Negative ng/mL (Negative) 01/15/22 21:11 Ur Amphetamines Screen Negative ng/mL (Negative) 01/15/22 21:11 U Benzodiazepines Scrn Negative ng/mL (Negative) 01/15/22 21:11 Urine Cocaine Screen Negative ng/mL (Negative) 01/15/22 21:11 U Marijuana (THC) Screen Negative ng/mL (Negative) 01/15/22 21:11 Ethyl Alcohol < 10 mg/dL (0-10) 01/15/22 18:52 Coronavirus 229E (PCR) Not detected (NOT DETECT) 01/16/22 02:16 Hepatitis A IgM Ab TNP 01/16/22 02:20 Hep Bs Antigen Non-reactive (Nonreactive) 01/16/22 02:20 Hep Bs Antibody 14.7 (11.5-1000) 01/16/22 02:20 Hep B Core Total Ab Non-reactive (Nonreactive) 01/16/22 02:20 Hepatitis C Antibody Reactive (Nonreactive) H 01/16/22 02:20 Influenza Type A Ag Negative (Negative) 01/16/22 01:21 Influenza Type B Ag Negative (Negative) 01/16/22 01:21 SARS-CoV-2 (PCR) Not detected (NOT DETECT) 01/16/22 02:16 Vitals Last Vital Signs Temp 98.3 F 01/16/22 11:32 Pulse 71 01/16/22 11:32 Resp 18 01/16/22 11:32 BP 139/81 01/16/22 11:32 Pulse Ox 91 01/16/22 11:32 Discharge Plan Discharge Patient Disposition: Home Condition: Stable Prescriptions: New magnesium oxide 400 mg magnesium capsule 400 mg PO DAILY PRN (Reason: headache) 10 Days Qty: 10 0RF levofloxacin 500 mg tablet 500 mg PO DAILY 5 Days Qty: 5 0RF Klor-Con 20 mEq packet 20 meq PO DAILY 7 Days Qty: 1 0RF ketorolac 10 mg tablet 10 mg PO Q8H PRN (Reason: pain) 3 Days Qty: 10 0RF Continued levothyroxine 75 mcg tablet 75 mcg PO DAILY@08 0RF lisinopril 40 mg tablet 20 mg PO DAILY@08 Qty: 0 0RF metoprolol tartrate 50 mg tablet 50 mg PO BID@08,20 0RF aspirin 81 mg Tablet,Chewable 81 mg PO DAILY@08 0RF Hold Instructions: Resume on 12/25/20. Eliquis 5 mg tablet 5 mg PO BID@08,20 0RF Hold Instructions: Resume on 12/25/20. Held hydrochlorothiazide 25 mg tablet 25 mg PO DAILY@08 0RF Hold Instructions: Resume on 01/23/22. Discontinued amoxicillin-pot clavulanate [Augmentin] 500-125 mg tablet 1 tab PO TID Qty: 21 0RF Discharge Orders: Discharge Order (Routine); Ordered 01/16/22 Ordered By: Jeovany Cain Other Ambulatory Orders: Complete Blood Count w/Auto (Routine) Timeframe: 1 Week Location: Determined by Patient Ordered By: Jeovany Cain Comprehensive Metabolic Panel (Routine) Timeframe: 1 Week Facility: [facility] - Location: Lab - Main Lab Ordered By: Jeovany Cain Referrals: Jerry Flynn DO [Primary Care Provider] - 01/22/22 11:00 am Discharge Diet: Advance as tolerated Discharge Activity: Increase activity as tolerated Patient Instructions: Potassium Chloride (By mouth), Ketorolac (By mouth) (To radol), Levofloxacin (By mouth), Magnesium (By mouth), Urinary Tract Infection in Women (DC), Depression (ED), Acute Headache (ED), Opioid Safety Activity Restrictions/Additional Instructions: Please come back to the emergency room you have any fever chills, worsening headache, focal weakness, nausea/vomiting, inability to perform daily activity, or any new concerning complaints. Please come back to the emergency room if you need help, have any hallucinations, or you have any depression or have thoughts about hurting yourself or other people. Our case investigator will have you follow-up with [facility] in the next few days. You would be expected to have a phone call with our case investigator who will put you on the schedule. You can expect a call from us in the next 2-3 days. If you don't hear from us, call us back in the emergency room at [phone]. Discharge Attestations Time Spent in Discharge Care*: less than 30 min Quality Metrics Clinical Quality Measures [ No reported AMI, CVA or VTE this stay] Coding Level of Care Code Acute Chg FW DC note Exam Detailed Diagnoses Altered mental status R41.82 Acute cystitis N30.00 Atrial fibrillation I48.91 Hyponatremia E87.1 Hypokalemia E87.6 Thrombocytopenia D69.6 Elevated liver enzymes R74.8 Hypertension I10
[2022-01-16] MEDS: potassium chloride ER 20 mEq Tablet 40 MEQ PO (15:31)
[2022-01-17 14:07] LABS: Lyme AB Screen <0.90 index
[2022-01-17 19:17] LABS: HEP C RNA Viral Load Quant <1.18 NOT DETECTED Log IU/mL (NOT DETECTED); HEP C RNA Viral Load Quant <15 NOT DETECTED IU/mL (NOT DETECTED)
[2022-01-20 16:58] LABS: E. Chaffeensis AB IGG <1:64; E. Chaffeensis AB IGM <1:20
[2022-01-20 21:02] LABS: RMSF IGG NOT DETECTED; RMSF IGM NOT DETECTED
== END 2022-01-16 16:15 | disposition home or self-care (01) ==
LOC: ER 23:44 → MEDSURG 01-16 00:49
PROVIDERS: Admitting Provider Internal Medicine; Emergency Provider Emergency Medicine; PCP Family Medicine; Visit Provider Internal Medicine
DX: R41.82 Altered mental status, unspecified (principal); N30.00 Acute cystitis without hematuria; I48.91 Unspecified atrial fibrillation; E87.1 Hypo-osmolality and hyponatremia; E87.6 Hypokalemia; D69.6 Thrombocytopenia, unspecified; R74.8 Abnormal levels of other serum enzymes; I10 Essential (primary) hypertension; Z79.82 Long term (current) use of aspirin
CPT/HCPCS: 12345; 36415; 70450; 70551; 71045; 80053; 80306; 80307; 81001; 82140; 83690; 83880; 84439; 84443; 84484; 85007; 85025; 86618; 86666; 86705; 86706; 86709; 86757; 86803; 87086; 87340; 87522; 87635; 87804; 93005; 93306; 96365; 96366; 96367; 96375; 96376; 99285; G0378; J0696; J2270; J2765; J3475; J3480; J7040

== ENCOUNTER → 2022-01-22 16:41 | Outpatient (BNVA) | payer MEDICARE, SELFPAY | PROVIDERS: PCP Family Medicine; Visit Provider Clinical Nurse Specialist Adult Health | DX: E87.6 Hypokalemia (principal); E03.9 Hypothyroidism, unspecified; D69.6 Thrombocytopenia, unspecified; R74.8 Abnormal levels of other serum enzymes; N30.00 Acute cystitis without hematuria | CPT/HCPCS: 80053; 81000; 84443; 85007; 85025 ==

== ENCOUNTER → 2022-01-29 14:19 | Outpatient (BNVA) | payer MEDICARE, SELFPAY | PROVIDERS: PCP Family Medicine; Visit Provider Family Medicine | DX: R53.83 Other fatigue (principal) | CPT/HCPCS: 81000; 87086 ==

== ENCOUNTER 2022-02-10 15:19 | Outpatient (CLI) | payer MEDICARE, SELFPAY ==
--- NOTE | 2022-02-10 15:32 | XR_ITS ---
WS: [email or web address] Exam: XR chest 2V* [id number] Date/Time of Exam: 02/10/2022 3:33 PM Reason For Exam: SHORTNESS OF BREATH Comparison 01/15/2022. The lungs are fully expanded and clear. Normal cardiomediastinal silhouette. No pleural effusions. Po stoperative changes along the left infrahilar region. No pleural effusions. Bony structures are intac t. XR/XR chest 2V* [id number] IMPRESSION: 1. No acute cardiopulmonary finding. No change.
== END 2022-02-10 15:20 | disposition home or self-care (01) ==
PROVIDERS: PCP Family Medicine; Visit Provider Clinical Nurse Specialist Adult Health
DX: R06.02 Shortness of breath (principal); R53.83 Other fatigue; N30.00 Acute cystitis without hematuria
CPT/HCPCS: 71046; 80053; 81000; 82306; 82607; 83880; 85025; 87086

== ENCOUNTER → 2022-02-18 08:19 | Outpatient (BNVA) | payer MEDICARE, SELFPAY | PROVIDERS: PCP Family Medicine; Visit Provider Family Medicine | DX: I50.31 Acute diastolic (congestive) heart failure (principal); R06.02 Shortness of breath; R53.83 Other fatigue; N30.00 Acute cystitis without hematuria; E87.6 Hypokalemia | CPT/HCPCS: 80048; 81000; 87086 ==

== ENCOUNTER → 2022-05-14 12:57 | Outpatient (BNVA) | payer MEDICARE, SELFPAY | PROVIDERS: PCP Family Medicine; Visit Provider Family Medicine | DX: N39.0 Urinary tract infection, site not specified (principal); L82.1 Other seborrheic keratosis | CPT/HCPCS: 81000 ==

== ENCOUNTER → 2022-06-02 13:16 | Outpatient (BNVA) | payer MEDICARE, SELFPAY | PROVIDERS: PCP Family Medicine; Visit Provider Family Medicine | DX: N39.0 Urinary tract infection, site not specified (principal) | CPT/HCPCS: 81000; 87077; 87086; 87184 ==

== ENCOUNTER → 2022-06-17 08:13 | Outpatient (BNVA) | payer MEDICARE, SELFPAY | PROVIDERS: PCP Family Medicine; Visit Provider Podiatrist Foot & Ankle Surgery | DX: L85.1 Acquired keratosis [keratoderma] palmaris et plantaris (principal) | CPT/HCPCS: 17110 ==

== ENCOUNTER → 2022-07-22 15:33 | Outpatient (BNVA) | payer MEDICARE, SELFPAY | PROVIDERS: PCP Family Medicine; Visit Provider Podiatrist Foot & Ankle Surgery | DX: L85.1 Acquired keratosis [keratoderma] palmaris et plantaris (principal) | CPT/HCPCS: 99213 ==

== ENCOUNTER 2022-09-11 10:32 | Emergency (ER) | payer MEDICARE, SELFPAY ==
--- NOTE | 2022-09-11 10:44 | XR_ITS ---
WS: [id number] Exam: [place] [id number] Date/Time of Exam: 09/11/2022 10:30 AM Reason For Exam: fall Findings: There are no fractures or bone anomalies. The bony elements are in adequate alignment. There are no soft tissue calcifications or infiltration. The joint spaces are smooth and intact. XR/[place] [id number] IMPRESSION: Negative left humerus.
--- NOTE | 2022-09-11 10:44 | XR_ITS ---
WS: [email or web address] Exam: XR shoulder LT min 2V* [id number] Date/Time of Exam: 09/11/2022 10:30 AM Reason For Exam: fall, pain No fracture or dislocation. Mild degenerative change of the glenohumeral joint and AC joint. Normal s oft tissues. XR/XR shoulder LT min 2V* [id number] IMPRESSION: 1. No fracture or dislocation. Mild DJD.
--- NOTE | 2022-09-11 10:44 | XR_ITS ---
WS: [email or web address] Exam: XR chest 1V portable [id number] Date/Time of Exam: 09/11/2022 10:30 AM Reason For Exam: fall Comparison 02/10/2022. The lungs are clear and hyperinflated. Normal cardiomediastinal silhouette. Bony structures appear to be intact. Postoperative changes along the left infrahilar region. XR/XR chest 1V portable [id number] IMPRESSION: 1. Pulmonary hyperinflation. No acute process noted.
[2022-09-11 10:52] VITALS: BP 161/92; PULSE 75; RESP 16; TEMP 36.5; O2SAT 97; BMI 27.2
--- NOTE | 2022-09-11 11:44 | ED_ITS ---
HPI - Extremity Problem General: Chief complaint: Extremity Injury, Upper Stated complaint: left shoulder injury Time Seen by Provider: 09/11/22 11:44 History of Present Illness: Ms. Welsh is a 72-year-old lady presenting to the emergency department due to fall with shoulder injury. She reports being in her garden yesterday and tripping over a rock landing primarily forward catching herself on her left arm. Immediately had pain in the shoulder. Since that time symptoms have persisted. Does have an abrasion to her chin however denies neck pain, no loss of consciousness or headache, patient is no longer on Eliquis as she had a watchman procedure. Scattered abrasions otherwise without significant pain. Presented to outside clinic we referred her for x-rays and further evaluation. Intensity of symptoms is moderate. Course has persisted. Worse symptoms with flexion and extension, no elbow issues. No other specific changes in health, exacerbating, or alleviating factors identified. Onset (ago): day(s) Pain Consistency: constant Location: left and upper extremity Quality: stabbing and aching Radiation: none Relieving factors: nothing Exacerbating factors: range of motion Associated symptoms: Reports no associated symptoms Review of Systems General: Reports: 10 or more systems reviewed and unremarkable except in HPI and below PFSH ED PFSH: Medical History Acute cystitis Altered mental status Atrial fibrillation Elevated liver enzymes Hypertension Hypokalemia Hyponatremia Hypothyroidism Plantar porokeratosis, acquired Thrombocytopenia Family History Other Cerebral hemorrhage Social History Smoking and tobacco status: never smoked Alcohol intake: current Alcohol intake frequency: few times a month Household members: none Current occupational status: other 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 Physical Exam Const: COMMON NORMALS: alert GENERAL APPEARANCE: cooperative and well developed HENMT: COMMON NORMALS: normocephalic and atraumatic HEAD & SCALP: normocephalic and atraumatic THROAT: posterior oropharynx normal Eye: COMMON NORMALS: conjunctivae normal CONJUNCTIVA: Yes conjunctivae normal SCLERA: sclerae normal Neck/C-Spine: COMMON NORMALS: supple GENERAL: Yes trachea midline Resp: COMMON NORMALS: normal respiratory effort EFFORT & INSPECTION: Yes able to speak in complete sentences Cardio: COMMON NORMALS: regular rate and regular rhythm RATE: regular rate RHYTHM: regular rhythm GI: COMMON NORMALS: Soft to palpation PALPATION: Yes Soft to palpation and No Tenderness to palpation present (GI) Extremity: NARRATIVE EXTREMITY EXAM: Left shoulder Tender to palpation, distal CMS intact. GENERAL: Yes normal exam except as noted and No edema Neuro: COMMON NORMALS: moves all extremities SENSORIUM/ORIENTATION: Yes alert and No Orientation impaired Psych: COMMON NORMALS: mental status grossly normal and Normal thought process present THOUGHT PROCESS: Normal thought process present Course Vital Signs: Vital signs: Vital Signs Temperature 97.7 F 09/11/22 10:52 Pulse Rate 75 09/11/22 10:52 Respiratory Rate 16 09/11/22 10:52 Blood Pressure 161/92 09/11/22 10:52 Pulse Oximetry 97 09/11/22 10:52 Oxygen Delivery Me thod 09/11/22 10:52 MDM - Extremity (Nontraumatic) Medical Decision Making 72-year-old lady presenting due to fall with concern for shoulder injury. Exam as above. Head to toe exam performed. There is pain with range of motion specifically anterior movement of the humerus concerning for ligamentous strain. X-rays negative for acute fracture. UA negative. Most likely etiology of patient's symptoms is soft tissue injury from fall. The results of ED evaluation were discussed with the patient including prescriptions and/or symptomatic cares (if applicable) including appropriate and responsible use, followup plan, and return precautions. The patient verbalized understanding and felt safe for discharge. Medical Records I reviewed the patient's medical records. Lab Data I reviewed the patient's lab results. Radiology Impressions Chest X-Ray 09/11/22 10:44 IMPRESSION: 1. Pulmonary hyperinflation. No acute process noted. Humerus X-Ray 09/11/22 10:44 IMPRESSION: Negative left humerus. Shoulder X-Ray 09/11/22 10:44 IMPRESSION: 1. No fracture or dislocation. Mild DJD. Discharge Plan Discharge Patient Disposition: Home Clinical Impression: Acute shoulder pain, Rotator cuff injury, Fall, Abrasion, multiple sites Condition: Stable Prescriptions: New ondansetron 4 mg tablet,disintegrating 4 mg PO Q8H PRN (Reason: nausea and vomiting) Qty: 15 0RF oxycodone 5 mg tablet 5 mg PO Q4H PRN (Reason: pain) Qty: 10 0RF No Action furosemide 40 mg tablet PO potassium chloride 20 mEq tablet,ER particles/crystals PO metoprolol tartrate 25 mg tablet See Rx Instructions .ROUTE .COMPLEX Qty: 90 3RF Dose Instruction: TAKE 1 AND 1/2 TABLETS BY MOUTH TWICE DAILY Rx Instructions: TAKE 1 AND 1/2 TABLETS BY MOUTH TWICE DAILY lisinopril 20 mg tablet See Rx Instructions .ROUTE .COMPLEX Qty: 60 11RF Dose Instruction: TAKE 2 TABLETS BY MOUTH EVERY DAY Rx Instructions: TAKE 2 TABLETS BY MOUTH EVERY DAY levothyroxine 75 mcg tablet See Rx Instructions .ROUTE .COMPLEX Qty: 90 1RF Dose Instruction: TAKE 1 TABLET BY MOUTH EVERY DAY Rx Instructions: TAKE 1 TABLET BY MOUTH EVERY DAY hydrochlorothiazide 25 mg tablet See Rx Instructions .ROUTE .COMPLEX Qty: 90 3RF Hold Instructions: Resume on 01/23/22. Dose Instruction: TAKE 1 TABLET BY MOUTH EVERY DAY Rx Instructions: TAKE 1 TABLET BY MOUTH EVERY DAY metoprolol tartrate 50 mg tablet 50 mg PO BID@08,20 aspirin 81 mg Tablet,Chewable 81 mg PO DAILY@08 Hold Instructions: Resume on 12/25/20. Eliquis 5 mg tablet 5 mg PO BID@08,20 Hold Instructions: Resume on 12/25/20. Discharge Orders: Discharge ED (Routine); Ordered 09/11/22 Ordered By: Deepak Polanco Referrals: Jerry Flynn, [Primary Care Provider] - Discharge Diet: Usual diet Discharge Activity: Limit activity as instructed Patient Instructions: Rotator Cuff Injury (ED), Abrasion (ED), Opioid Safety, Pain Management Activity Restrictions/Additional Instructions: Thank you for visiting the emergency department. You were seen and evaluated f or shoulder pain after a fall. The most likely cause of your symptoms is strain and sprain with possible tear of the ligaments and tendons. I do not see evidence of bony injury. I will place you in a sling and refer you for follow- up with orthopedics. You may use hcak-[id number]-[id number] medications such as acetaminophen and ibuprofen for pain however please do not exceed the daily recommended dosage as listed on the packaging and please keep in mind that many namebrand medications contain the same active ingredients. Please avoid these medications if previously instructed to do so by another physician due to other underlying medical condition. I will also prescribe oxycodone for uncontrolled pain, use this cautiously as it is an opioid, do not combine it with other sedating substances. Common side effects includes constipation and [id number]-lushyry stool softener should be used. Return to the emergency department for uncontrolled symptoms or anything else that you are concerned about a feel needs emergency department evaluation. Coding Level of Care Code ED Project Landscape Architect for Ashley Argueta Exam Comprehensive
[2022-09-11] MEDS: ketorolac 30 mg/mL INJ IM (12:04)
[2022-09-11] MEDS: tetanus-dipt-pertussis 0.5 mL SDV IM (12:06)
--- NOTE | 2022-09-16 09:17 | DCPLANNER ---
Addendum entered by Nimo Starr 09/16/22 13:22: completions manager received the following message from the ortho clinic regarding follow up appointment: spoke to patient, she said she thinks she is fine and has been using her shoulder. she doesn't feel she needs a follow up with specialist at this time. Original Note: completions manager had message to schedule a follow up appointment for patient with ortho. completions manager sent patients information to the front office staff at ortho. Patients information will be printed and reviewed. Clinic will call patient with appointment information.
== END 2022-09-11 12:20 | disposition home or self-care (01) ==
PROVIDERS: Emergency Provider Emergency Medicine; PCP Family Medicine
DX: S46.002A Unspecified injury of muscle(s) and tendon(s) of the rotator cuff of left shoulder, initial encounter (principal); S00.81XA Abrasion of other part of head, initial encounter; W01.0XXA Fall on same level from slipping, tripping and stumbling without subsequent striking against object, initial encounter; Y93.H2 Activity, gardening and landscaping; M25.512 Pain in left shoulder; Z23 Encounter for immunization
CPT/HCPCS: 71045; 73030; 73060; 81000; 90471; 90715; 96372; 99284; J1885

== ENCOUNTER 2024-01-06 13:51 | Outpatient (CLI) | payer MEDICARE, SELFPAY ==
--- NOTE | 2024-01-06 13:57 | XR_ITS ---
WS: [id number] DEXA (DUAL ENERGY X-RAY ABSORPTIOMETRY) Bone mineral density was performed using a Pavlok machine. HISTORY: Postmenopausal COMPARISON: 08/14/2014 Lumbar spine BMD (L1-L4): 1.093 g/cm2 T score: -0.7 Z score: 0.4 Total hip BMD: Left: 0.957 g/cm2. T score: -0.4 Z score: 0.9 Right: 0.895 g/cm2. T score: -0.9 Z score: 0.4 10 year probability of a major osteoporotic fracture is 15.2%. Compared to the prior study from 08/14/2014. Lumbar spine bone mineral density has increased by 2.5%. Bilateral hips bone mineral density has decreased by 8.6%. IMPRESSION: NORMAL BONE MINERAL DENSITY based upon the WHO classification for females. Significant decrease in bone mineral density within the hips. Significant increase in bone mineral de nsity within the lumbar spine.
--- NOTE | 2024-01-06 14:11 | MM_ITS ---
WS: [id number] BILATERAL 3D TOMOSYNTHESIS DIGITAL SCREENING MAMMOGRAPHY WITH CAD CLINICAL INFORMATION: SCREENING HISTORY: Screening mammogram. No current complaints. COMPARISON: 2014 TECHNIQUE: Bilateral CC and MLO views. FINDINGS: Scattered fibroglandular densities bilaterally. No suspicious focal mass, asymmetry, calcifications, or architectural distortion. No evidence of malignancy. IMPRESSION: MM/[place] [id number] BI-RADS: 1-Negative FOLLOW UP: 1 Year Follow-up Recommend return to annual screening mammography.
== END 2024-01-06 13:52 | disposition home or self-care (01) ==
PROVIDERS: PCP Electrodiagnostic Medicine; Visit Provider Electrodiagnostic Medicine
DX: Z12.31 Encounter for screening mammogram for malignant neoplasm of breast (principal); Z78.0 Asymptomatic menopausal state; R92.323 Mammographic fibroglandular density, bilateral breasts
CPT/HCPCS: 77063; 77067; 77080

== ENCOUNTER → 2024-01-25 15:33 | Outpatient (BNVA) | payer MEDICARE, SELFPAY | PROVIDERS: PCP Electrodiagnostic Medicine; Visit Provider Podiatrist Foot & Ankle Surgery | DX: M72.2 Plantar fascial fibromatosis | CPT/HCPCS: 73630; 99213 ==

== ENCOUNTER → 2024-03-01 15:22 | Outpatient (BNVA) | payer MEDICARE, SELFPAY | PROVIDERS: PCP Electrodiagnostic Medicine; Visit Provider Podiatrist Foot & Ankle Surgery | DX: M72.2 Plantar fascial fibromatosis | CPT/HCPCS: 99213 ==

== ENCOUNTER → 2025-02-01 07:45 | Outpatient (BNVA) | payer MEDICARE, SELFPAY | PROVIDERS: PCP Electrodiagnostic Medicine; Visit Provider Podiatrist Foot & Ankle Surgery | DX: B07.0 Plantar wart (principal); M79.671 Pain in right foot; M72.2 Plantar fascial fibromatosis | CPT/HCPCS: 17110; 99213 ==

== ENCOUNTER → 2025-03-08 08:53 | Outpatient (BNVA) | payer MEDICARE, SELFPAY | PROVIDERS: PCP Electrodiagnostic Medicine; Visit Provider Podiatrist Foot & Ankle Surgery | DX: M25.571 Pain in right ankle and joints of right foot (principal); L84 Corns and callosities; B07.0 Plantar wart; M19.071 Primary osteoarthritis, right ankle and foot; M72.2 Plantar fascial fibromatosis | CPT/HCPCS: 73610; 99213 ==

== ENCOUNTER → 2025-03-22 10:29 | Outpatient (BNVA) | payer MEDICARE, SELFPAY | PROVIDERS: PCP Electrodiagnostic Medicine; Visit Provider Physician Assistant | DX: M25.511 Pain in right shoulder (principal); M75.41 Impingement syndrome of right shoulder; M19.011 Primary osteoarthritis, right shoulder | CPT/HCPCS: 20610; 73030; 99213; J3301; J9999 ==

== ENCOUNTER 2025-03-27 13:44 | Outpatient (RCR) | payer MEDICARE, SELFPAY | END 2025-04-20 23:59 | disposition home or self-care (01) | LOC: SPT 13:44 | PROVIDERS: PCP Electrodiagnostic Medicine; Visit Provider Podiatrist Foot & Ankle Surgery | DX: M25.571 Pain in right ankle and joints of right foot (principal) | CPT/HCPCS: 97161 ==